=== PATIENT | male | born 1985 | race Caucasian/White ===

== ENCOUNTER 2022-01-25 06:45 | Outpatient (CLI) | payer SELFPAY ==
--- NOTE | 2022-01-25 07:15 | CRLHL7_ITS ---
For Patients: As a result of the Century Cures Act, medical imaging exams and procedure reports are released immediately into your electronic medical record. You may view this report before your referring provider. If you have questions, please contact your health care provider. CLINICAL HISTORY: mass of left kidney noted on CT COMPARISON: CT 10/15/2021 TECHNIQUE: Montero scale and color Doppler images were acquired of the kidneys. FINDINGS: Echogenic lesion lower pole left kidney measuring 1.6 x 1.6 x 1.5 centimeters corresponding with the CT. There is no evidence of hydronephrosis or calculus. The right kidney measures 10.4cm in length and the left kidney measures 10.3cm in length. The renal cortex appears of normal thickness. Normal Doppler flow to both kidneys. IMPRESSION: Indeterminate hyperechoic mass lower pole left kidney measuring 1.6 cm. Pre and postcontrast renal MRI recommended for further evaluation. Dictated by Lavelle Suh MD @ 01/25/2022 9:07:05 AM (Electronically Signed)
--- OUTSIDE RECORDS SUMMARY | 2022-02-15 16:36 | XMS_ITS | Clinical Summary ---
:1985 Author Organization [facility] Address [address] [place] [address] Care Team Providers Name Role Phone Unassigned, Provider Primary Care Provider Unavailable Source Comments You are receiving this document as you are listed as the primary care provider,follow-up provider, or the patient has been referred to you for consultation.This is in compliance with the Medicare and Medicaid EHR Incentive Program,which states Providers who transition their patient to another setting of careor provider of care or refers their patient to another provider of care shouldprovide summarycare record for each transition of care or referral. [facility] Allergies No known active allergies Medications Medication Sig Dispensed Refills Start Date End Date Status MAGNESIUM OXIDE OR 0 A ctive Echinacea 80 MG 0 Acti ve Ascorbic Acid (VITAMIN C OR) 0 Active Active Problems No known active problems Social History Tobacco Use Types Packs/Day Years Used Date Smoking Tobacco: Every Day Cigarettes 1 Sex Assigned at Date Recorded Not on file Last Filed Vital Signs Vital Sign Reading Time Taken Comments Blood Pressure 154/86 09/14/2020 2:40 PM STOCK LIFTER Pulse 101 09/14/2020 2:40 PM STOCK LIFTER Temperature - - Respiratory Rate 18 09/14/2020 2:40 PM STOCK LIFTER Oxygen Saturation 97% 09/14/2020 2:40 PM STOCK LIFTER Inhaled Oxygen Concentration - - Weight - - Height - - Body Mass Index - - Plan of Treatment Health Maintenance Due Date Last Done Comments Hep C Screening (Preventive 1987 Services) HepB (1) 1987 COVID-19 Vaccine (#1) 1987 Pneumococcal (1 - PCV) 1993 HIV Screening (Preventive 2003 Services) Adult Preventive Visit 2005 DTaP/Tdap/Td (1 - Tdap) 2006 Influenza (#1) 2022 Zoster/Shingles (1 of 2) 2037 HPV Vaccine Aged Out No longer eligib le based on patient's age to complete this topic HepA Aged Out No longer eligib le based on patient's age to complete this topic Hib Aged Out No longer eligib le based on patient's age to complete this topic IPV (Polio) Aged Out No longer eligib le based on patient's age to complete this topic MCV4 Aged Out No longer eligib le based on patient's age to complete this topic Care Teams Lab Rep Relationship Specialty Start Date End Date Unassigned, Provider PCP - General 07/26/[address] [place] [id number]
--- OUTSIDE RECORDS SUMMARY | 2022-02-15 16:36 | XMS_ITS | Encounter Summary ---
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 Reason for Visit Reason Comments Chest Pain Encounter Details Date Type Department Care Team Description 09/14/2020 Hospital Encounter [place] [address] [place], Chest pain, Urgent Care MD Raul[place] unspecified type [address] [facility] [id number] [place], [place] [phone] [id number] Social History Tobacco Use Types Packs/Day Years Used Date Smoking Tobacco: Every Day Cigarettes 1 Sex Assigned at Date Recorded Not on file documented as of this encounter Last Filed Vital Signs Vital Sign Reading Time Taken Comments Blood Pressure 154/86 09/14/2020 2:40 PM DIE ATTACHING MACHINE TENDER Pulse 101 09/14/2020 2:40 PM DIE ATTACHING MACHINE TENDER Temperature - - Respiratory Rate 18 09/14/2020 2:40 PM DIE ATTACHING MACHINE TENDER Oxygen Saturation 97% 09/14/2020 2:40 PM DIE ATTACHING MACHINE TENDER Inhaled Oxygen Concentration - - Weight - - Height - - Body Mass Index - - documented in this encounter Medications at Time of Discharge Medication Sig Dispensed Refills Start Date End Date Ascorbic Acid (VITAMIN C OR) 0 Echinacea 80 MG 0 MAGNESIUM OXIDE OR 0 documented as of this encounter ED Notes Raulito Rebollar MD - 09/14/2020 3:19 PM CST Midsternal Chest pain that started this morning, getting worse but intermittent. Denies SOB, personal cardiac history, mom had heart attack at 43. SUBJECTIVE: Chadd Romeo is a 35 y.o. male here with his partner because shortly after waking up today he noticed pain, substernal, jus a bit left to center. He has had perhaps similar chest pain before but not to that extent. He does not seem to be exertional. Denies shortness of breath or pain with deep breath. It is non positional. It feels like ???red hot dae in my chest?? . It is intermittent. Nothing really affected. He is a smoker, on no medications. He is new to [employer]. I do not believe he has a primary physician this time. Significantly, his mom had a heart attack at age 43. Allergies: Patient has no known allergies. Past medical history: has no past medical history on file. Medications: No current facility-administered medications for this encounter. Current Outpatient Medications Medication Sig Dispense Refill ??? Ascorbic Acid (VITAMIN C OR) ??? Echinacea 80 MG ??? MAGNESIUM OXIDE OR OBJECTIVE: Vital Signs: BP (!) 154/86 (BP Location: Right Arm, BP Cuff Size: Regular - Long) Pulse(!) 101 Resp 18 SpO2 97% EXAM: Overweight. Does not look to be in any respiratory or other apparent discomfort. Normal skin color. No tenderness to palpation of the chest. Heart with regular rate and rhythm, no neck vein distention. Peripheral pulses in his upper extremities are full and equal. He has no peripheral edema. No o rganomegaly. Lungs are clear bilaterally to auscultation. I ordered an EKG and reviewed myself to be normal sinus rhythm, normal EKG. Vitals as above. ASSESSMENT: Chest pain in patient with risk factors that include tobacco abuse and mom at young age having KS. he is also overweight. PLAN: Given the above, I suggested that he should be seen in the emergency department and he was sent to [facility] in [place] after I talked to personnel there. The patient was discharged ambulatory and in stable condition. 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 documented in this encounter Results ECG 12 Lead Inpatient (09/14/2020 2:42 PM DIE ATTACHING MACHINE TENDER) P athologist Signature Ventricular Rate 70 BPM [facility] Atrial Rate 70 BPM [facility] P-R Interval 138 ms [facility] QRS Duration 94 ms [facility] QT 380 ms [facility] QTc 410 ms [facility] P [place] 4 degrees [facility] R [place] 1 degrees [facility] T [place] 10 degrees [facility] Specimen (Source) Anatomical Collection Method Collection Time Re ceived Time Location / / Volume Laterality 09/14/2020 2:42 PM DIE ATTACHING MACHINE TENDER Narrative [facility] - 09/14/2020 3:50 PM DIE ATTACHING MACHINE TENDER Sinus rhythm Normal ECG No previous ECGs available Confirmed by SALAS ROSARIO ([id number]) on 3:50:24 PM Procedure Note Salas Rosario MD - 09/14/2020 Sinus rhythm Normal ECG No previous ECGs available Confirmed by SALAS ROSARIO ([id number]) on 3:50:24 PM Adelso Shultz MBBS PN ECG ORDERABLES Performing Organization Address City/State/ZIP Code Phon e Number [facility] [address] [place] [address] documented in this encounter Visit Diagnoses Diagnosis Chest pain, unspecified type Triage Assessment Note - Arlene Campbell RN - 09/14/2020 2:38 PM CST Midsternal Chest pain that started this morning, getting worse but intermittent. Denies SOB, personal cardiac history, mom had heart attack at 43. 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
--- OUTSIDE RECORDS SUMMARY | 2022-02-15 16:36 | XMS_ITS | Encounter Summary ---
:1985 Author Organization [facility] Address [address] [place] [address] Care Team Providers Name Role Phone No Ref-Primary, Physician Primary Care Provider [phone] Encounter Details Date Type Department Care Team Description 09/14/2020 Travel Social History Tobacco Use Types Packs/Day Years Used Date Never Assessed Sex Assigned at Date Recorded Not on file COVID-19 Exposure Response Date Recorded In the last month, have you been in contact with No / Unsure 09/14/2020 5:30 PM [employer]FER someone who was confirmed or suspected to have Coronavirus / COVID-19? documented as of this encounter Plan of Treatment Not on filedocumented as of this encounter Visit Diagnoses Not on filedocumented in this encounter Care Teams Fruit Culler Relationship Specialty Start Date End Date No Ref-Primary, Physician PCP - General 09/14/20 documented as of this encounter
--- OUTSIDE RECORDS SUMMARY | 2022-02-15 16:36 | XMS_ITS | Clinical Summary ---
:1985 Author Organization [facility] Address [address] [place] [address] Care Team Providers Name Role Phone No Ref-Primary, Physician Primary Care Provider [phone] Allergies No known active allergies Medications No known medications Social History Tobacco Use Types Packs/Day Years Used Date Never Assessed Sex Assigned at Date Recorded Not on file Last Filed Vital Signs Vital Sign Reading Time Taken Comments Blood Pressure 132/79 09/14/2020 4:45 PM TICKET WRITER Pulse 79 09/14/2020 4:45 PM TICKET WRITER Temperature 36 ??C (96.8 ??F) 09/14/2020 3:45 PM TICKET WRITER Respiratory Rate 16 09/14/2020 4:45 PM TICKET WRITER Oxygen Saturation 97% 09/14/2020 4:45 PM TICKET WRITER Inhaled Oxygen Concentration - - Weight 102.1 kg (225 lb) 09/14/2020 3:45 PM TICKET WRITER Height 188 cm (6' 2) 09/14/2020 3:45 PM TICKET WRITER Body Mass Index 28.89 09/14/2020 3:45 PM TICKET WRITER Plan of Treatment Health Maintenance Due Date Last Done Comments ADVANCE CARE PLANNING 1987 ANNUAL REVIEW OF HM ORDERS 1987 PREVENTIVE CARE VISIT 1987 COVID-19 Vaccine (#1) 1987 HIV SCREENING 2002 HEPATITIS C SCREENING 2005 DTAP/TDAP/TD IMMUNIZATION 07/11/2006 07/10/2006, 10/18/1999 , (5 - Tdap) 11/30/1988, Additional history exists PHQ-2 (once per calendar 07/10/2021 year) INFLUENZA VACCINE (#1) 2022 IPV IMMUNIZATION Aged Out 11/30/1988 No longer eligi ble based on patient 's age to complete this topic HEPATITIS B IMMUNIZATION Completed 03/24/2006, 10/26/2005, 09/12/2005 MENINGITIS IMMUNIZATION Aged Out No longe r eligible based on patient 's age to complete this topic Pneumococcal Vaccine: Aged Out No longer eligible Pediatrics (0 to 5 Years) based on patient's age and At-Risk Patients (6 to to co mplete this topic 64 Years) Care Teams Pipe Fitter Supervisor Relationship Specialty Start Date End Date No Ref-Primary, Physician PCP - General 09/14/20
--- OUTSIDE RECORDS SUMMARY | 2022-02-15 16:36 | XMS_ITS | Encounter Summary ---
:1985 Author Organization [facility] Address [address] [place] [address] Care Team Providers Name Role Phone No Ref-Primary, Physician Primary Care Provider [phone] Reason for Referral CV Testing (Routine) - Closed Specialty Diagnoses / Procedures Referred By Contact Refer red To Contact Diagnoses Chest pain Johnnie Robert APRN Procedures Echo Stress Echocardiogram [facility] DOPPLER ECHO PULSED, F/U OR LIMITED [facility] DOPPLER ECHO COLOR FLOW VELOCITY MAP [facility] ECHO HEART XTHORACIC, STRESS/REST [facility] ECHO TRANSTHORACIC, STRESS/REST W CONTRAST LOOP SEWER [facility] ECHO TRANSTHORACIC, STR ESS/REST W/O CONTRAST [facility] IV PUSH SINGLE, INITIAL SUBSTANCE [facility] INJECTION, PERFLUTREN LIPID MICROSPHERES, PER ML [facility] STATISTIC IV PUSH SINGLE INITIAL SUBSTANCE HI DOPPLER ECHO PULSED, F/U OR LIMITED [facility] HI DOPPLER ECHO COLOR FLOW V ELOCITY MAP HI ECHO HEART XTHORACIC, STRESS/REST HI INJECTION, PERFLUTREN LIPID MICROSPHERES, PER ML HI IV PUSH SINGLE, INITIAL SUBSTANCE HI ECHO HEART XTHORACIC, STRESS/REST HI ECHO HEART XTHORACIC, STRESS/REST [address] HC DOPPLER ECHO PULSED, F/U OR LIMITED HC DOPPLER ECHO COLOR FLOW VELOCITY MAP HC IV PUSH SINGLE, INITIAL SUBSTANCE HC STATISTIC IV PUSH SINGLE INITIAL SUBSTANCE HC ECHO TRANSTHORACIC, STRESS/[place] [address] HC ECHO TRANSTHORACIC, STRESS/REST W/O C ONTRAST Referral ID Status Reason Start Date Expiration Date Visits Requ ested Visits Authorized [id number] Closed 09/14/2020 09/14/2021 1 1 ISTRY TUTOR Reason for Visit Reason Comments Chest Pain Encounter Details Date Type Department Care Team Description 09/14/2020 Emergency [facility] Carlee Severino i, PA-C [facility] [address] [place] [address] Chest pain Emergency Dept Johnnie Robert APRN CNP [facility] [address] [place], [place] [id number] [address] [place] [address] Social History Tobacco Use Types Packs/Day Years Used Date Never Assessed Sex Assigned at Date Recorded Not on file COVID-19 Exposure Response Date Recorded In the last month, have you been in contact with No / Unsure 09/14/2020 5:30 PM CHEMISTRY TUTOR someone who was confirmed or suspected to have Coronavirus / COVID-19? documented as of this encounter Last Filed Vital Signs Vital Sign Reading Time Taken Comments Blood Pressure 132/79 09/14/2020 4:45 PM CHEMISTRY TUTOR Pulse 79 09/14/2020 4:45 PM CHEMISTRY TUTOR Temperature 36 ??C (96.8 ??F) 09/14/2020 3:45 PM CHEMISTRY TUTOR Respiratory Rate 16 09/14/2020 4:45 PM CHEMISTRY TUTOR Oxygen Saturation 97% 09/14/2020 4:45 PM CHEMISTRY TUTOR Inhaled Oxygen Concentration - - Weight 102.1 kg (225 lb) 09/14/2020 3:45 PM CHEMISTRY TUTOR Height 188 cm (6' 2) 09/14/2020 3:45 PM CHEMISTRY TUTOR Body Mass Index 28.89 09/14/2020 3:45 PM CHEMISTRY TUTOR documented in this encounter Discharge Instructions Discharge InstructionsJohnnie Robert APRN CNP - 09/14/2020 5:26 PM CHEMISTRY TUTOR Take OTC Pepcid or Prilosec as directed for at least 2 weeks. ISTRY TUTOR AttachmentsThe following attachments cannot be sent through Care Everywhere. Chest Pain, Uncertain Cause (Japanese)documented in this encounter Medications at Time of Discharge Medication Sig Dispensed Refills Start Date End Date sucralfate (CARAFATE) 1 Take 10 mLs (1 g) by 280 mL 0 09/21/2020 GM/10ML suspension mouth 4 times daily for 7 days documented as of this encounter ED Notes Heather Avilez RN - 09/14/2020 3:43 PM CST Pt sent over from for intermittent left sided CP since this morning. Denies SOB. Pt says mother had heart attack at 43. Denies current medications. ISTRY TUTOR Johnnie Robert APRN CNP - 09/14/2020 3:40 PM CST History Chief Complaint: Chest pain The history is provided by the patient. Chadd Romeo is a 35 year old male who presents for evaluation of chest pain. 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 Throughout the day, he has continued to have this chest pain which waxes and wanes in severity and is intermittent. His chest pain is nonradiating. He did have some right hand tingling throughout the day. As the day has progressed, his chest pain has worsened, leading him to present to urgent care who ultimately referred him here for further workup. Here, his pain is currently a 2/10 in severity. He denies fever, chills, shortness of breath, sore throat, abdominal pain, nausea, vomiting, diarrhea, or hematochezia. He denies any personal cardiac history, though does have a family cardiac history notable for IA at age 43 in his mother and atrial fibrillation in his father. Review of Systems Constitutional: Negative for chills and fever. HENT: Negative for sore throat. Respiratory: Negative for shortness of breath. Cardiovascular: Positive for chest pain. Gastrointestinal: Negative for abdominal pain, diarrhea, nausea and vomiting. All other systems reviewed and are negative. Allergies: No Known Drug Allergies Medications: The patient is not currently taking any prescribed medications. Medical History: History reviewed. The patient denies any medical history including hypertension, hyperlipidemia, or cardiac history. Family History: Father - Atrial fibrillation Mother - IA Social History: The patient was unaccompanied to the ED. Smoking Status: Current Alcohol Use: Yes Physical Exam Patient Vitals for the past 24 hrs: BP Temp Pulse Resp SpO2 Height Weight 09/14/20 1645 132/79 -- 79 16 97 % -- -- 09/14/20 1640 132/79 -- 76 17 98 % -- -- 09/14/20 1600 -- -- 70 13 98 % -- -- 09/14/20 1545 (!) 144/101 96.8 ??F (36 ??C) 74 18 99 % 1.88 m (6' 2) 102.1 kg (225 lb) Physical Exam General: Alert, No obvious discomfort, well kept Eyes: PERRL, conjunctivae pink no scleral icterus or conjunctival injection ENT: Moist mucus membranes, posterior oropharynx clear without erythema or exudates, No lymphadenopathy, Normal voice Resp: Lungs clear to auscultation bilaterally, no crackles/rubs/wheezes. Good air movement CV: Normal rate and rhythm, no murmurs/rubs/gallops GI: Abdomen soft and non-distended. Normoactive BS. No tenderness, guarding or rebound, No masses Skin: Warm, dry. No rashes or petechiae Musculoskeletal: No peripheral edema or calf tenderness, Normal gross ROM Neuro: Alert and oriented to person/place/time, normal sensation Psychiatric: Normal affect, cooperative, good eye contact Emergency Department Course ECG: ECG taken at 1557, ECG read at 1605 Normal sinus rhythm. Minimal voltage criteria for LVH, may be normal variant. Borderline ECG. Rate 68 bpm. HI interval 138 ms. QRS duration 94 ms. QT/QTc 394/418 ms. P-R-T axes -4 -2 5. Imaging: XR Chest 2 Views Normal. Reading per radiology. Laboratory: CBC: WBC 6.9, HGB 17.1, PLT 287 BMP: ALL WNL (Creatinine 0.72) Troponin (1556): <0.015 Emergency Department Course: Reviewed: I reviewed the patient's nursing notes, vitals, past medical records, Care Everywhere. Assessments: 1620 I performed an exam of the patient, as documented above. 1717 I reassessed the patient and discussed the results of the evaluation thus far. Interventions: 1638 Carafate 1 g PO Disposition: The patient was discharged to home. Impression & Plan Medical Decision Making: Chadd Romeo is a 35 year old male who presents today for evaluation of ongoing waxing and waningtype chest pain since this morning. Pain never fully resolved but does drop down to a level of 2 outof 10. He was unable to distinguish any alleviating or aggravating factors. Given this he presented t [facility] for evaluation. His main concern was for a cardiac source as his mother had a heart attack at ayoung age. His evaluation today showed a nonacute EKG with negative troponin. His laboratory studieswere noncontributory. Unlikely to represent ACS at this point. His symptoms were improved with Carafate as above and given his description of a burning sensation I question whether this is his reflux. He did state that it was different than his typical reflux but has not taken any medications for this. Again he had improvement with Carafate. Unlikely represent PE. Have this point in time I will give him a week's worth of Carafate advised him to take a bwju-xvq-gaazieb acid and follow-up with GI if continued symptoms. I also have placed a stress test in the system to further reduce his cardiac risk.He does have a HEART score of 1 putting him at the lowest possible risk for major cardiac event. At this point time there is no indication for further testing or imagery. He appears to be safe and appropriate for outpatient management follow-up and is discharged home. Diagnosis: ICD-10-CM 1. Chest pain R07.9 Echo Stress Echocardiogram Discharge Medications: New Prescriptions SUCRALFATE (CARAFATE) 1 GM/10ML SUSPENSION Take 10 mLs (1 g) by mouth 4 times daily for 7 days Scribe Disclosure: Marcia Kate, am serving as a scribe at 3:47 PM on 09/14/2020 to document services personally performed by Carlee Urena PA-C based on my observations and the provider's statements to me. Johnnie Robert APRN CNP 09/14/201851 ISTRY TUTOR documented in this encounter Plan of Treatment Scheduled Orders Name Type Priority Associated Order Schedule Diagnoses Echo Stress Echocardiography Routine Chest pain Ordered: Echocardiogram 09/14/2020 documented as of this encounter Procedures Procedure Name Priority Date/Time Associated Comments Diagnosis XR CHEST 2 VW STAT 09/14/2020 4:56 PM Results for this CHEMISTRY TUTOR procedure are i n the results section. EKG 12-LEAD, TRACING STAT 09/14/2020 3:57 PM R esults for this ONLY CHEMISTRY TUTOR procedure are i n the results section. CBC WITH PLATELETS & STAT 09/14/2020 3:56 PM R esults for this DIFFERENTIAL CHEMISTRY TUTOR procedure are i n the results section. TROPONIN I STAT 09/14/2020 3:56 PM Results f or this CHEMISTRY TUTOR procedure are i n the results section. BASIC METABOLIC PANEL STAT 09/14/2020 3:56 PM Results for this CHEMISTRY TUTOR procedure are i n the results section. documented in this encounter Results XR Chest 2 Views (09/14/2020 4:56 PM CHEMISTRY TUTOR) Anatomical Region Laterality Modality Chest Computed Radiography Specimen (Source) Anatomical Location Collection Method / Collectio n Time Received Time / Laterality Volume Impressions 09/14/2020 4:57 PM CHEMISTRY TUTOR IMPRESSION: Normal. JESSICA CALLE MD Narrative 09/14/2020 4:57 PM CHEMISTRY TUTOR XR CHEST 2 VW ?? 09/14/2020 4:56 PM HISTORY: CP COMPARISON: None. Procedure Note Jessica Calle MD - 09/14/2020Form atting of this note might be different from the original. XR CHEST 2 VW 09/14/2020 4:56 PM HISTORY: CP COMPARISON: None. IMPRESSION: Normal. JESSICA CALLE MD Johnnie Robert MERCHANDISER SEASONAL LOOP SEWER IMG DIAGNOSTIC IMAGING [facility] EKG 12-lead, tracing only (09/14/2020 3:57 PM CHEMISTRY TUTOR) [facility] Method Time Signature Interpretation ECG Click View RADIOLOGY Image link RESULTS to view waveform and result Specimen (Source) Anatomical Collection Method Collection Time Re ceived Time Location / / Volume Laterality 09/14/2020 3:57 PM CHEMISTRY TUTOR Carlee Urena PA-C ECG ORDERABLES Performing Organization Address City/State/ZIP Code Phon e Number RADIOLOGY RESULTS Troponin I (09/14/2020 3:56 PM CHEMISTRY TUTOR) athologist Signature Troponin I ES <0.015 0.000 - 09/14/2020 [facility] 0.045 ug/L 4:[address] [facility] Comment: The 99th percentile for upper reference range is 0.045 ug/L. ??Troponin values in the range of 0.045 - 0.120 ug/L may b e associated with risks of adverse clinical events. Specimen Anatomical Collection Method Collection Time Receive d Time (Source) Location / / Volume Laterality Blood specimen 09/14/2020 3:56 PM 021 4:05 (specimen) CHEMISTRY TUTOR PM CHEMISTRY TUTOR Carlee Urena PA-C LAB - BLOOD ORDERABLES Performing Organization Address City/State/ZIP Code Phon e Number M [place] [address] [address] [place], [place] [address] [facility] [address] [phone] Basic metabolic panel (09/14/2020 3:56 PM CHEMISTRY TUTOR) athologist Signature Sodium 140 133 - 144 09/14/2020 [facility] mmol/L 4:[address] [facility] Potassium 3.8 3.4 - 5.3 09/14/2020 [facility] mmol/L 4:[address] [facility] Chloride 106 94 - 109 09/14/2020 [facility] mmol/L 4:[address] [facility] Carbon Dioxide 27 20 - 32 09/14/2020 [facility] mmol/L 4:31 PM [facility] Anion Gap 7 3 - 14 09/14/2020 [facility] mmol/L 4:31 PM [facility] Glucose 85 70 - 99 09/14/2020 [facility] mg/dL 4:31 PM [facility] Urea Nitrogen 9 7 - 30 09/14/2020 [facility] mg/dL 4:31 PM [facility] Creatinine 0.72 0.66 - 09/14/2020 [facility] 1.25 mg/dL 4:31 PM [facility] GFR Estimate >90 >60 09/14/2020 [facility] mL/min/{1. 4:31 PM [facility] 73_m2} HOSPITAL Comment: Non GFR Calc Starting 06/26/2018, serum creatinine ba sed estimated GFR (eGFR) will be calculated using the Chronic Kidney Dise [facility] Epidemiology Collaboration (CKD-EPI) equation. GFR Estimate If >90 >60 mL/min/{1.73_m2} 09/14/2020 4: 31 PM [facility] Comment: GFR Calc Starting 06/26/2018, serum creatinine ba sed estimated GFR (eGFR) will be calculated using the Chronic Kidney Dise [facility] Epidemiology Collaboration (CKD-EPI) equation. Calcium 9.0 8.5 - 10.1 mg/dL 09/14/2020 4:31 PM [facility] Specimen Anatomical Collection Method Collection Time Receive d Time (Source) Location / / Volume Laterality Blood specimen 09/14/2020 3:56 PM 021 4:05 (specimen) CHEMISTRY TUTOR PM [facility] Carlee Urena PA-C LAB - BLOOD ORDERABLES Performing Organization Address City/State/ZIP Code Phon e Number M [address] [address] [facility] [address] [place], [place] [address] [phone] [address], [facility] CBC with platelets differential (09/14/2020 3:56 PM [facility]) [facility] Method Time Signature WBC 6.9 4.0 - 09/14/2020 [facility] 11.0 4:11 PM [facility] 10e9/L [facility] RBC Count 5.36 4.4 - 5.9 09/14/2020 [facility] 10e12/L 4:[address] [facility] Hemoglobin 17.1 13.3 - 09/14/2020 [facility] 17.7 g/dL 4:[address] [facility] Hematocrit 51.7 40.0 - 09/14/2020 [facility] 53.0 % 4:[address] [facility] MCV 97 78 - 100 09/14/2020 [facility] fl 4:[address] [facility] MCH 31.9 26.5 - 09/14/2020 [facility] 33.0 pg 4:[address] [facility] MCHC 33.1 31.5 - 09/14/2020 [facility] 36.5 g/dL 4:[address] [facility] RDW 12.3 10.0 - 09/14/2020 [facility] 15.0 % 4:[address] [facility] Platelet Count 287 150 - 450 09/14/2020 [facility] 10e9/L 4:[address] [facility] Diff Method Automated 09/14/2020 [facility] Method 4:[address] [facility] % Neutrophils 62.3 % 09/14/2020 [facility] 4:[address] [facility] % Lymphocytes 28.0 % 09/14/2020 [facility] 4:[address] [facility] % Monocytes 6.8 % 09/14/2020 [facility] 4:[address] [facility] % Eosinophils 2.0 % 09/14/2020 [facility] 4:[address] [facility] % Basophils 0.6 % 09/14/2020 [facility] 4:[address] [facility] % Immature 0.3 % 09/14/2020 [facility] Granulocytes 4:[address] [facility] Nucleated RBCs 0 0 /100 09/14/2020 [facility] 4:[address] [facility] Absolute 4.3 1.6 - 8.3 09/14/2020 [facility] Neutrophil 10e9/L 4:[address] [facility] Absolute 1.9 0.8 - 5.3 09/14/2020 [facility] Lymphocytes 10e9/L 4:[address] [facility] Absolute 0.5 0.0 - 1.3 09/14/2020 [facility] Monocytes 10e9/L 4:[address] [facility] Absolute 0.1 0.0 - 0.7 09/14/2020 [facility] Eosinophils 10e9/L 4:[address] [facility] Absolute 0.0 0.0 - 0.2 09/14/2020 [facility] Basophils 10e9/L 4:[address] [facility] Abs Immature 0.0 0 - 0.4 09/14/2020 [facility] Granulocytes 10e9/L 4:[address] [facility] Absolute 0.0 09/14/2020 [facility] Nucleated RBC 4:[address] [facility] Specimen Anatomical Collection Method Collection Time Receive d Time (Source) Location / / Volume Laterality Blood specimen 09/14/2020 3:56 PM 021 4:05 (specimen) CHEMISTRY TUTOR PM CHEMISTRY TUTOR Carlee Urena PA-C LAB - BLOOD ORDERABLES Performing Organization Address City/State/ZIP Code Phon e Number M [facility] [address] [place], [place] [address] [facility] [address] [place], [place] [address] [facility] [phone] documented in this encounter Visit Diagnoses Diagnosis Chest pain Chest pain, unspecified documented in this encounter Administered Medications Inactive Administered Medications - up to 3 most recent administrations Medication Order MAR Action Action Date Dose Rate Site sucralfate (CARAFATE) suspension 1 g Given 09/14/2020 4:38 PM CHEMISTRY TUTOR 1 g 1 g, Oral, ONCE, On Mon09/14/20 at 1630, For 1 dose documented in this encounter Active and Recently Administered Medications Times are shown in CHEMISTRY TUTOR. Scheduled Medication Order 09/12/2020 09/13/2020 09/14/2020 sucralfate (CARAFATE) suspension 1 g (COMPLETED) 1638 (Given - Provider: Carlee Morales, RN) 1 g, Oral, ONCE, Mon09/14/20 at 1630, For 1 dose documented in this encounter Care Teams Chief Nursing Executive Relationship Specialty Start Date End Date No Ref-Primary, Physician PCP - General 09/14/20 documented as of this encounter
== END 2022-01-25 06:46 | disposition home or self-care (01) ==
PROVIDERS: PCP Family Medicine; Visit Provider Family Medicine
DX: N28.89 Other specified disorders of kidney and ureter (principal)
CPT/HCPCS: 76775

== ENCOUNTER 2022-02-08 11:53 | Outpatient (CLI) | payer SELFPAY ==
--- NOTE | 2022-02-08 13:30 | W.ANESCHARGE ---
Anesthesia Charges Start Date/Time Anesthesia Start Date: 02/08/22 Anesthesia Start Time: 12:53 Stop Date/Time Anesthesia Stop Date: 02/08/22 Anesthesia Stop Time: 13:25 Summary Emergency: No
--- NOTE | 2022-02-08 13:32 | W.ANESCHARGE ---
Anesthesia Charges Start Date/Time Anesthesia Start Date: 02/08/22 Anesthesia Start Time: 12:53 Stop Date/Time Anesthesia Stop Date: 02/08/22 Anesthesia Stop Time: 13:25 Summary Emergency: No
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
--- OUTSIDE RECORDS SUMMARY | 2022-02-15 21:57 | XMS_ITS | Clinical Summary ---
:1985 Author Organization [facility] Address [address] [place] [address] Care Team Providers Name Role Phone Unassigned, [...] Comments Blood Pressure 154/86 09/14/2020 2:40 PM AUTOMOTIVE CUSTOMER EXPERIENCE ADVISOR Pulse 101 09/14/2020 2:40 PM AUTOMOTIVE CUSTOMER EXPERIENCE ADVISOR Temperature - - Respiratory Rate 18 09/14/2020 2:40 PM AUTOMOTIVE CUSTOMER EXPERIENCE ADVISOR Oxygen Saturation 97% 09/14/2020 2:40 PM AUTOMOTIVE CUSTOMER EXPERIENCE ADVISOR Inhaled Oxygen Concentration - - Weight - [...] age to complete this topic Care Teams Maintenance And Utilities Supervisor Relationship Specialty Start Date End Date Unassigned, Provider PCP - General 07/26/[address] [place] [address]
--- OUTSIDE RECORDS SUMMARY | 2022-02-15 21:57 | XMS_ITS | Clinical Summary ---
:1985 Author Organization [facility] Address [address] [place] [address] Care Team Providers Name Role Phone No Ref-Primary, Physician Primary Care Provider [phone] Allergies No known active allergies Medications No known medications Social History Tobacco Use Types Packs/Day Years Used Date Never Assessed Sex Assigned at Date Recorded Not on file Last Filed Vital Signs Vital Sign Reading Time Taken Comments Blood Pressure 132/79 09/14/2020 4:45 PM PATIENT ACCOUNTS COORDINATOR Pulse 79 09/14/2020 4:45 PM PATIENT ACCOUNTS COORDINATOR Temperature 36 ??C (96.8 ??F) 09/14/2020 3:45 PM PATIENT ACCOUNTS COORDINATOR Respiratory Rate 16 09/14/2020 4:45 PM PATIENT ACCOUNTS COORDINATOR Oxygen Saturation 97% 09/14/2020 4:45 PM PATIENT ACCOUNTS COORDINATOR Inhaled Oxygen Concentration - - Weight 102.1 kg (225 lb) 09/14/2020 3:45 PM PATIENT ACCOUNTS COORDINATOR Height 188 cm (6' 2) 09/14/2020 3:45 PM PATIENT ACCOUNTS COORDINATOR Body Mass Index 28.89 09/14/2020 3:45 PM PATIENT ACCOUNTS COORDINATOR Plan of Treatment Health Maintenance Due Date [...] mplete this topic 66 Years) Care Teams Retail Area Manager Relationship Specialty Start Date End Date No Ref-Primary, Physician PCP - General 09/14/20
--- OUTSIDE RECORDS SUMMARY | 2022-02-15 21:57 | XMS_ITS | Encounter Summary ---
:1985 Author Organization [place] Address [address] [place] [address] Care Team Providers Name Role Phone No Ref-Primary, Physician Primary Care Provider Reason for Referral CV Testing (Routine) - Closed Specialty Diagnoses / Procedures Referred By Contact Refer red To Contact Diagnoses Chest pain Johnnie Robert APRN Procedures Echo Stress Echocardiogram [facility] DOPPLER ECHO PULSED, F/U OR LIMITED [facility] DOPPLER ECHO COLOR FLOW VELOCITY MAP [facility] ECHO HEART XTHORACIC, STRESS/REST [facility] ECHO TRANSTHORACIC, STRESS/REST W CONTRAST SUPERVISOR TOWER [facility] ECHO TRANSTHORACIC, STR ESS/REST W/O CONTRAST [facility] IV PUSH SINGLE, INITIAL SUBSTANCE [facility] INJECTION, PERFLUTREN LIPID MICROSPHERES, PER ML [facility] STATISTIC IV PUSH SINGLE INITIAL SUBSTANCE CT DOPPLER ECHO PULSED, F/U OR LIMITED [facility] CT DOPPLER ECHO COLOR FLOW V ELOCITY MAP CT ECHO HEART XTHORACIC, STRESS/REST CT INJECTION, PERFLUTREN LIPID MICROSPHERES, PER ML CT IV PUSH SINGLE, INITIAL SUBSTANCE CT ECHO HEART XTHORACIC, STRESS/REST CT ECHO HEART XTHORACIC, STRESS/REST [address] [facility] DOPPLER ECHO PULSED, F/U OR LIMITED HC DOPPLER ECHO COLOR FLOW VELOCITY MAP HC IV PUSH SINGLE, INITIAL SUBSTANCE HC STATISTIC IV PUSH SINGLE INITIAL SUBSTANCE HC ECHO TRANSTHORACIC, STRESS/[place] [address] HC ECHO TRANSTHORACIC, STRESS/REST W/O C ONTRAST Referral ID Status Reason Start Date Expiration Date Visits Requ ested Visits Authorized [id number] Closed 09/14/2020 09/14/2021 1 1 MS ANALYST Reason for Visit Reason Comments Chest Pain Encounter Details Date Type Department Care Team Description 09/14/2020 Emergency [facility] Carlee Severino i, PA-C [facility] [address] [place] [address] Chest pain Emergency Dept Johnnie Robert APRN CNP [facility] [address] [place], [place] [id number] [address] [place] [address] Social History Tobacco Use Types Packs/Day Years Used Date Never Assessed Sex Assigned at Date Recorded Not on file COVID-19 Exposure Response Date Recorded In the last month, have you been in contact with No / Unsure 09/14/2020 5:30 PM CLAIMS ANALYST someone who was confirmed or suspected to have Coronavirus / COVID-19? documented as of this encounter Last Filed Vital Signs Vital Sign Reading Time Taken Comments Blood Pressure 132/79 09/14/2020 4:45 PM CLAIMS ANALYST Pulse 79 09/14/2020 4:45 PM CLAIMS ANALYST Temperature 36 ??C (96.8 ??F) 09/14/2020 3:45 PM CLAIMS ANALYST Respiratory Rate 16 09/14/2020 4:45 PM CLAIMS ANALYST Oxygen Saturation 97% 09/14/2020 4:45 PM CLAIMS ANALYST Inhaled Oxygen Concentration - - Weight 102.1 kg (225 lb) 09/14/2020 3:45 PM CLAIMS ANALYST Height 188 cm (6' 2) 09/14/2020 3:45 PM CLAIMS ANALYST Body Mass Index 28.89 09/14/2020 3:45 PM CLAIMS ANALYST documented in this encounter Discharge Instructions Discharge InstructionsJohnnie Robert APRN CNP - 09/14/2020 5:26 PM CLAIMS ANALYST Take OTC Pepcid or Prilosec as directed for at least 2 weeks. MS ANALYST AttachmentsThe following attachments cannot be sent through Care Everywhere. Chest Pain, Uncertain Cause ([place]ozambican)documented in this encounter Medications at Time of [...] heart attack at 45. Denies current medications. MS ANALYST Johnnie Robert APRN CNP - 09/14/2020 3:40 [...] have a family cardiac history notable for [place] at age 45 in his mother and [...] History: Father - Atrial fibrillation Mother - [place] Social History: The patient was unaccompanied to [...] normal variant. Borderline ECG. Rate [address] interval 138 ms. QRS duration 94 ms. [...] of Carafate advised him to take a ablm-opz-xhduoyd acid and follow-up with GI if continued [...] to me. Johnnie Robert APRN CNP 09/14/201851 MS ANALYST documented in this encounter Plan of Treatment Scheduled Orders Name Type Priority Associated Order Schedule Diagnoses Echo Stress Echocardiography Routine Chest pain Ordered: Echocardiogram 09/14/2020 documented as of this encounter Procedures Procedure Name Priority Date/Time Associated Comments Diagnosis XR CHEST 2 VIEWS STAT 09/14/2020 4:56 PM Resul ts for this CLAIMS ANALYST procedure are i n the results section. EKG 12-LEAD, TRACING STAT 09/14/2020 3:57 PM R esults for this ONLY CLAIMS ANALYST procedure are i n the results section. CBC WITH PLATELETS & STAT 09/14/2020 3:56 PM R esults for this DIFFERENTIAL CLAIMS ANALYST procedure are i n the results section. TROPONIN I STAT 09/14/2020 3:56 PM Results f or this CLAIMS ANALYST procedure are i n the results section. BASIC METABOLIC PANEL STAT 09/14/2020 3:56 PM Results for this CLAIMS ANALYST procedure are i n the results section. documented in this encounter Results XR Chest 2 Views (09/14/2020 4:56 PM CLAIMS ANALYST) Anatomical Region Laterality Modality Chest Computed Radiography Specimen (Source) Anatomical Location Collection Method / Collectio n Time Received Time / Laterality Volume Impressions 09/14/2020 4:57 PM CLAIMS ANALYST IMPRESSION: Normal. JESSICA CALLE MD Narrative 09/14/2020 4:57 PM CLAIMS ANALYST XR CHEST 2 VW ?? 09/14/2020 4:56 PM HISTORY: CP COMPARISON: None. Procedure Note Jessica Calle MD - 09/14/2020Form atting of this note might be different from the original. XR CHEST 2 VW 09/14/2020 4:56 PM HISTORY: CP COMPARISON: None. IMPRESSION: Normal. JESSICA CALLE MD Johnnie Robert OUT [employer]CHOOL [employer]RS CARE WORKER SUPERVISOR TOWER [facility] EKG 12-lead, tracing only (09/14/2020 3:57 PM CLAIMS ANALYST) [facility] Method Time Signature Interpretation ECG Click View RADIOLOGY Image link RESULTS to view waveform and result Specimen (Source) Anatomical Collection Method Collection Time Re ceived Time Location / / Volume Laterality 09/14/2020 3:57 PM CLAIMS ANALYST Carlee Urena PA-C ECG ORDERABLES Performing Organization Address City/State/ZIP Code Phon e Number RADIOLOGY RESULTS Troponin I (09/14/2020 3:56 PM CLAIMS ANALYST) athologist Signature Troponin I ES <0.015 0.000 - 09/14/2020 [facility] 0.045 ug/L 4:34 PM [facility] Comment: The 99th percentile for upper reference range is 0.045 ug/L. ??Troponin values in the range of 0.045 - 0.120 ug/L may b e associated with risks of adverse clinical events. Specimen Anatomical Collection Method Collection Time Receive d Time (Source) Location / / Volume Laterality Blood specimen 09/14/2020 3:56 PM 021 4:05 (specimen) CLAIMS ANALYST PM CLAIMS ANALYST Carlee Urena PA-C LAB - BLOOD ORDERABLES Performing Organization Address City/State/ZIP Code Phon e Number M [place] [address], [place] [address] [facility] [address] [phone] Basic metabolic panel (09/14/2020 3:56 PM CLAIMS ANALYST) athologist Signature Sodium 140 133 - 144 09/14/2020 [facility] mmol/L 4:24 PM [facility] Potassium 3.8 3.4 - 5.3 09/14/2020 [facility] mmol/L 4:24 PM [facility] Chloride 106 94 - 109 09/14/2020 [facility] mmol/L 4:24 PM [facility] Carbon Dioxide 27 20 - 32 09/14/2020 [facility] mmol/L 4:31 PM [facility] Anion Gap 7 3 - 14 09/14/2020 [facility] mmol/L 4:31 PM [facility] Glucose 85 70 - 99 09/14/2020 [facility] mg/dL 4:31 PM [facility] Urea Nitrogen 9 7 - 30 09/14/2020 [facility] mg/dL 4:31 PM [facility] Creatinine 0.72 0.66 - 09/14/2020 [facility] 1.25 mg/dL 4:31 PM [facility] GFR Estimate >90 >60 09/14/2020 [facility] mL/min/{1. 4:[address] [facility] 73_m2} [facility]OSPITAL Comment: Non GFR Calc Starting 06/26/2018, serum creatinine ba sed estimated GFR (eGFR) will be calculated using the Chronic Kidney Dise [facility] Epidemiology Collaboration (CKD-EPI) equation. GFR Estimate If >90 >60 mL/min/{1.73_m2} 09/14/2020 4: 31 PM [facility] Comment: GFR Calc Starting 06/26/2018, serum creatinine ba sed estimated GFR (eGFR) will be calculated using the Chronic Kidney Dise [facility] Epidemiology Collaboration (CKD-EPI) equation. Calcium 9.0 8.5 - 10.1 mg/dL 09/14/2020 4:31 PM [facility] Specimen Anatomical Collection Method Collection Time Receive d Time (Source) Location / / Volume Laterality Blood specimen 09/14/2020 3:56 PM 021 4:05 (specimen) CLAIMS ANALYST PM [facility] Carlee Urena PA-C LAB - BLOOD ORDERABLES Performing Organization Address City/State/ZIP Code Phon e Number M [address] [address] [facility] [address] [place], [place] [address] [phone] [address] CBC with platelets differential (09/14/2020 3:56 PM [facility]) [facility] Method Time Signature WBC 6.9 4.0 - 09/14/2020 [facility] 11.0 4:11 PM [facility] 10e9/L [facility] RBC Count 5.36 4.4 - 5.9 09/14/2020 [facility] 10e12/L 4:11 PM [facility] Hemoglobin 17.1 13.3 - 09/14/2020 [facility] 17.7 g/dL 4:11 PM [facility] Hematocrit 51.7 40.0 - 09/14/2020 [facility] 53.0 % 4:11 PM [facility] MCV 97 78 - 100 09/14/2020 [facility] fl 4:11 PM [facility] MCH 31.9 26.5 - 09/14/2020 [facility] 33.0 pg 4:11 PM [facility] MCHC 33.1 31.5 - 09/14/2020 [facility] 36.5 g/dL 4:11 PM [facility] RDW 12.3 10.0 - 09/14/2020 [facility] 15.0 % 4:11 PM [facility] Platelet Count 287 150 - 450 09/14/2020 [facility] 10e9/L 4:11 PM [facility] Diff Method Automated 09/14/2020 [facility] Method 4:11 PM [facility] % Neutrophils 62.3 % 09/14/2020 [facility] 4:11 PM [facility] % Lymphocytes 28.0 % 09/14/2020 [facility] 4:11 PM [facility] % Monocytes 6.8 % 09/14/2020 [facility] 4:11 PM [facility] % Eosinophils 2.0 % 09/14/2020 [facility] 4:11 PM [facility] % Basophils 0.6 % 09/14/2020 [facility] 4:11 PM [facility] % Immature 0.3 % 09/14/2020 [facility] Granulocytes 4:11 PM [facility] Nucleated RBCs 0 0 /100 09/14/2020 [facility] 4:11 PM [facility] Absolute 4.3 1.6 - 8.3 09/14/2020 [facility] Neutrophil 10e9/L 4:11 PM [facility] Absolute 1.9 0.8 - 5.3 09/14/2020 [facility] Lymphocytes 10e9/L 4:11 PM [facility] Absolute 0.5 0.0 - 1.3 09/14/2020 [facility] Monocytes 10e9/L 4:11 PM [facility] Absolute 0.1 0.0 - 0.7 09/14/2020 [facility] Eosinophils 10e9/L 4:11 PM [facility] Absolute 0.0 0.0 - 0.2 09/14/2020 [facility] Basophils 10e9/L 4:11 PM [facility] Abs Immature 0.0 0 - 0.4 09/14/2020 [facility] Granulocytes 10e9/L 4:11 PM [facility] Absolute 0.0 09/14/2020 [facility] Nucleated RBC 4:11 PM [facility] Specimen Anatomical Collection Method Collection Time Receive d Time (Source) Location / / Volume Laterality Blood specimen 09/14/2020 3:56 PM 021 4:05 (specimen) CLAIMS ANALYST PM CLAIMS ANALYST Carlee Urena PA-C LAB - BLOOD ORDERABLES Performing Organization Address City/State/ZIP Code Phon e Number M [facility] [address] [place], [place] [address] [facility] [address] [place], [place] [address] [facility] [phone] documented in this encounter Visit Diagnoses Diagnosis Chest pain Chest pain, unspecified documented in this encounter Administered Medications Inactive Administered Medications - up to 3 most recent administrations Medication Order MAR Action Action Date Dose Rate Site sucralfate (CARAFATE) suspension 1 g Given 09/14/2020 4:38 PM CLAIMS ANALYST 1 g 1 g, Oral, ONCE, On Mon09/14/20 at 1630, For 1 dose documented in this encounter Active and Recently Administered Medications Times are shown in CLAIMS ANALYST. Scheduled Medication Order 09/12/2020 09/13/2020 09/14/2020 sucralfate (CARAFATE) suspension 1 g (COMPLETED) 1638 (Given - Provider: Carlee Morales RN) 1 g, Oral, ONCE, Mon09/14/20 at 1630, For 1 dose documented in this encounter Care Teams Desktop Analyst Relationship Specialty Start Date End Date No Ref-Primary, Physician PCP - General 09/14/20 documented as of this encounter
--- OUTSIDE RECORDS SUMMARY | 2022-02-15 21:57 | XMS_ITS | Encounter Summary ---
:1985 Author Organization [place] Address [address] [place] [address] Care Team Providers Name Role Phone No Ref-Primary, Physician Primary Care Provider [phone] Encounter Details Date Type Department Care Team Description 09/14/2020 Travel Social History Tobacco Use Types Packs/Day Years Used Date Never Assessed Sex Assigned at Date Recorded Not on file COVID-19 Exposure Response Date Recorded In the last month, have you been in contact with No / Unsure 09/14/2020 5:30 PM BILL RECAPITULATION CLERK someone who was confirmed or suspected to have Coronavirus / COVID-19? documented as of this encounter Plan of Treatment Not on filedocumented as of this encounter Visit Diagnoses Not on filedocumented in this encounter Care Teams Weeder Thinner Relationship Specialty Start Date End Date No Ref-Primary, Physician PCP - General 09/14/20 documented as of this encounter
== END 2022-02-08 11:54 | disposition home or self-care (01) ==
LOC: OP CLINIC 11:54
PROVIDERS: PCP Family Medicine; Visit Provider Surgery
DX: R93.3 Abnormal findings on diagnostic imaging of other parts of digestive tract (principal); K63.5 Polyp of colon
CPT/HCPCS: 45385; 811; 88305; J2704

== ENCOUNTER 2022-02-13 18:35 | Emergency (ER) | payer SELFPAY ==
[2022-02-13 18:39] VITALS: BP 124/88; PULSE 93; RESP 18; TEMP 36.3; O2SAT 96; BMI 28.9
[2022-02-13 18:50] VITALS: BP 124/88; PULSE 93; RESP 18; TEMP 36.3; O2SAT 96
--- NOTE | 2022-02-13 18:50 | CRLHL7_ITS ---
For Patients: As a result of the Cures Act, medical imaging exams and procedure reports are released immediately into your electronic medical record. You may view this report before your referring provider. If you have questions, please contact your health care provider. Indication: Trauma. Technique: Left wrist, 3 views. Comparison: None. Findings: Bones: Alignment is normal. No fractures or bone lesions. Joint spaces: Unremarkable. Soft tissues: Unremarkable. Impression: No sign of acute injury. Dictated by Augustin Bhatti MD @ 02/13/2022 7:13:03 PM (Electronically Signed)
--- NOTE | 2022-02-13 18:51 | ED_ITS ---
HPI - Extremity Injury (Upper) General Chief Complaint: Extremity Pain/Injury, Upper Stated Complaint: Wrist Injury Time Seen by Provider: 02/13/22 18:39 History of Present Illness HPI narrative: This 36-year-old male comes in with an injury to his left wrist. He was pitching in a softball game when the ball was hit directly back to him and hit him on the volar aspect of the left wrist. He had some discomfort at that time but continued to play the game. Later the catcher through the ball back after pitch and it hit him in this same spot. This caused a rather immediate swelling and pain. He has bruising on the volar aspect of the left wrist that he states now is dissipated. He has normal range of motion. He does not report any other injury. Related Data Home Medications Medication Instructions Recorded Confirmed Saccharomyces boulardii 250 mg 500 mg PO BID 01/18/22 01/18/22 capsule (Daily Probiotic (S. boulardii)) acetaminophen 325 mg tablet mg PO PRN 01/18/22 01/18/22 omeprazole 20 mg capsule,delayed mg PO .Daily as needed PRN 01/18/22 01/18/22 release psyllium husk 0.4 gram capsule 0.8 g PO BID 01/18/22 01/18/22 (Metamucil) Previous Rx's Medication Instructions Recorded peg 3350-electrolytes 236 4,000 ml PO .ud #4,000 mL 02/02/22 gram-22.74 gram-6.74 gram-5.86 gram solution (Golytely) Allergies Allergy/AdvReac Type Severity Reaction Status Date / Time No Known Allergies Allergy Verified 01/18/22 09:55 Review of Systems Status of ROS: Reports: 10 or more systems reviewed and unremarkable except as noted in History and below Narrative: Constitutional: No fevers, no weight gain or loss. Eyes: No discharge. No vision changes. HENT: No congestion, no sore throat, no ear pain. Cardiovascular: No chest pain, no palpitations. Respiratory: No shortness of breath, no wheezes, no cough. Gastrointestinal: No abdominal pain, no vomiting, no diarrhea. Genitourinary: No dysuria, no hematuria. Musculoskeletal: Normal range of motion. Left wrist injury as described above. Skin: No rashes, no pruritis. Neurological: No dizziness, weakness, sensory change, speech change. Endo/Heme/Allergies: No bruising or bleeding. No polydipsia. Pysch: no suicidality, no anxiety, no insomnia. All other systems reviewed and are negative. 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 Habits: alcohol 20 drinks/wk, tob 15-20 cigs/day (working on quitting), daily marijuana Smoking Status: Current every day smoker What tobacco products do you use: cigarettes Do you use any of these nicotine containing products: None Second hand tobacco smoke exposure: Yes How often do you have a drink containing alcohol: never How often do you have six or more drinks on one occasion: Never AUDIT-C Alcohol total score: 0 Non-prescribed substance use: denies use Little interest or pleasure in doing things: not at all Feeling down, depressed, or hopeless: not at all Exam Narrative: Exam Narrative: Constitutional: Well-developed, well-nourished, no acute distress. HEENT: Normocephalic, atraumatic. Neck: Normal range of motion. Nontender. Supple. Heart: Intact distal pulses. Lungs: No chest discomfort. No wheezes, rhonchi, or rales. Abdomen: Nontender. Back: Normal range of motion. Extremities: Normal range of motion. Left wrist has bruising on the volar aspect approximately 6 cm in diameter with some swelling. Range of motion of the left wrist is intact. Skin: Intact. No rash. Warm. No erythema or pallor. Neurologic: No altered sensation. No weakness. Alert and oriented. Psychiatric: No suicidality. No anxiety or depression. No insomnia. Nursing notes and vitals signs are reviewed. Const: Vital Signs, click to edit/add: Vital Signs - 24 hr 02/13/22 18:39 02/13/22 18:50 Temperature 97.4 F L 97.4 F L Pulse Rate [Left P ulse Oximeter] 93 93 Respiratory Rate 18 18 Blood Pressure [Ri ght Upper Arm] 124/88 124/88 Pulse Oximetry 96 96 Oxygen Delivery Me thod Room Air Room Air Course Vital Signs Vital signs: Initial Vital Signs Temperature 97.4 F L 02/13/22 18:39 Temperature Source Temporal Artery Scan 02/13/22 18:39 Pulse Rate 93 02/13/22 18:39 Respiratory Rate 18 02/13/22 18:39 Blood Pressure 124/88 02/13/22 18:39 Blood Pressure Mean 100 02/13/22 18:39 Blood Pressure Position Sitting 02/13/22 18:39 Pulse Oximetry 96 02/13/22 18:39 Oxygen Delivery Method 02/13/22 18:39 Vital Signs Temperature 97.4 F L 02/13/22 18:39 Pulse Rate 93 02/13/22 18:39 Respiratory Rate 18 02/13/22 18:39 Blood Pressure 124/88 02/13/22 18:39 Pulse Oximetry 96 02/13/22 18:39 Oxygen Delivery Method 02/13/22 18:39 Temperature 97.4 F L 02/13/22 18:50 Pulse Rate 93 02/13/22 18:50 Respiratory Rate 18 02/13/22 18:50 Blood Pressure 124/88 02/13/22 18:50 Pulse Oximetry 96 02/13/22 18:50 Oxygen Delivery Method 02/13/22 18:50 MDM - Extremity Injury (Upper) MDM Narrative Medical decision making narrative: This patient comes in with an injury to his left wrist. He had significant swelling initially after the injury which sounds like a hematoma. Now the swelling has diminished but there is bruising on the volar aspect of his wrist. X-ray imaging shows no sign of fracture or malalignment. The patient actually has pretty good range of motion but does have some stiffness and increasing pain over time. An Tucker wrap was applied and he received a prescription for some tablets of Toradol. He is instructed to increase activity as tolerated. Imaging Data XR L Wrist: Radiologist's impression: No sign of acute injury. Discharge Plan Discharge Clinical Impression: Contusion of left wrist Condition: Unchanged Instructions: Wrist Injury (ED) Additional Instructions: Increase activity as tolerated. Take medication as needed and prescribed. Follow up with MD or return if worsening. Prescriptions: No Action omeprazole 20 mg capsule,delayed release(DR/EC) PO .Daily as needed PRN Saccharomyces boulardii [Daily Probiotic (S. boulardii)] 250 mg capsule 500 mg PO BID acetaminophen 325 mg tablet PO PRN Rx Instructions: Take on scheduled basis 4 times daily for 1 week, then as needed. psyllium husk [Metamucil] 0.4 gram capsule 0.8 g PO BID peg 3350-electrolytes [Golytely] 236-22.74-6.74 -5.86 gram recon soln 4,000 ml PO .ud Qty: 4000 0RF Rx Instructions: Take as instructed by endoscopy center Follow Up/Referrals: Rakesh Ramires MD [Primary Care Provider] - Stand Alone [facility]: [facility]
== END 2022-02-13 19:32 | disposition home or self-care (01) ==
PROVIDERS: Emergency Provider Emergency Medicine Emergency Medical Services; PCP Family Medicine
DX: S60.212A Contusion of left wrist, initial encounter (principal); W21.03XA Struck by baseball, initial encounter
CPT/HCPCS: 73110; 99283; 99284

== ENCOUNTER 2023-04-25 21:36 | Emergency (ER) | payer OTHER, SELFPAY ==
[2023-04-25 21:40] VITALS: BP 130/90; PULSE 110; RESP 16; TEMP 36.2; O2SAT 96
--- NOTE | 2023-04-25 22:16 | CRLHL7_ITS ---
For Patients: As a result of the Century Cures Act, medical imaging exams and procedure reports are released immediately into your electronic medical record. You may view this report before your referring provider. If you have questions, please contact your health care provider. INDICATION: Abdominal pain left lower quadrant TECHNIQUE: CT Abdomen and pelvis with i.v. contrast. Coronal and sagittal reformats were obtained. CONTRAST: 109 mL Isovue 370 COMPARISON: 10/15/2021 FINDINGS: Lower chest: There is a stable 1 mm nodule in the left lower lobe. Liver: Unremarkable. Spleen: Unremarkable. Pancreas: Unremarkable. Gallbladder: Multiple tiny calcified gallstones are noted. Kidney: There is a heterogeneous but predominantly hypodense lesion in the lower pole of the left kidney measuring 2.7 cm that has increased in size since prior exam where it measured 1.2 cm. There may be subtle internal enhancement. Adrenal: Unremarkable. Bowel: Moderate wall thickening is present in the mid sigmoid colon with mild inflammatory changes in the pericolonic fat. Previous appendectomy noted with no significant appendiceal stump identified. Vascular: Unremarkable. Lymph: Unremarkable. Peritoneum: Unremarkable. No pneumoperitoneum is seen. No significant ascites is noted. Pelvis: The bladder is decompressed and difficult to evaluate. Soft tissue: Unremarkable. Bone: Unremarkable for age. IMPRESSIONS: 1. Moderate wall thickening is present in the mid sigmoid colon with mild inflammatory changes in the pericolonic fat. These findings are consistent with acute diverticulitis. No adjacent peridiverticular abscess is seen. 2. There is a heterogeneous but predominantly hypodense lesion in the lower pole of the left kidney measuring 2.7 cm that has increased in size since prior exam where it measured 1.2 cm. There may be subtle internal enhancement. Assessment with outpatient renal MRI is recommended to exclude a renal malignancy. The findings and recommendation were discussed with Dr. Barksdale at 11:12 PM. Dictated by George Ventura MD @ 04/25/2023 11:11:37 PM Please note that all CT scans at this facility use dose modulation, iterative reconstruction, and/or weight-based dosing when appropriate to reduce radiation dose to as low as reasonably achievable. Dictated by: George Ventura MD @ 04/25/2023 23:12:15 (Electronically Signed)
[2023-04-25] MEDS: HYDROmorphone 0.5 mg/0.5 ml inj IVP (22:40)
[2023-04-25 22:43] LABS: Chloride* 97 mmol/L (96-114); Potassium* 3.7 mmol/L (3.6-5.1); Sodium* 136 mmol/L (135-149)
[2023-04-25 22:46] LABS: Anion Gap 11 mEq/L (7-15); Blood Urea Nitrogen* 9 mg/dL (5-24); Carbon Dioxide* 28 mmol/L (20-32); Creatinine* 0.8 mg/dL (0.5-1.5); Estimated Glomerular Filt Rate 118 ml/min
[2023-04-25 22:47] LABS: Calcium* 9.2 mg/dL (8.4-10.6); Glucose* 91 mg/dL (60-115)
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
[2023-04-25 22:56] LABS: Basophils Absolute Auto 0.03 K/uL (0.00-0.30); Basophils Percent Auto 0.3 % (0.0-3.0); Eosinophils Absolute Auto 0.09 K/uL (0.00-0.50); Hemoglobin* 16.7 gm/dL (13.5-17.5); Immature Granulocytes Abs Auto 0.02 K/uL (0.00-0.30); Immature Granulocytes Pct Auto 0.2 %; Lymphocytes Percent Auto 16.9 % (20-44); Mean Corpuscular HGB Conc 34 gm/dL (32-36); Mean Corpuscular Hemoglobin 33 pg (26-34); Mean Corpuscular Volume 96 fL (80-100); Monocytes Percent Auto 7.8 % (0.0-11.0); Neutrophils Percent Auto 73.8 % (42.0-72.0); Platelet Count* 247 K/uL (140-440); White Blood Count* 9.25 K/uL (4.50-11.00)
[2023-04-25 23:00] LABS: Slide Review Reflex No
[2023-04-25] MEDS: cefTRIAXone 1 GM in 0.9 % SODIUM CHLORIDE Mini-bag 100 ML IVPB (23:30)
[2023-04-26] MEDS: metroNIDAZOLE 500 MG/100 ML PIGGYBACK 100 MG IVPB (00:03)
[2023-04-26 00:59] VITALS: PULSE 87; RESP 16
[2023-04-26 01:29] LABS: Albumin* 4.2 g/dL (3.3-5.0)
[2023-04-26 01:32] LABS: Alkaline Phosphatase* 53 U/L (40-150); Aspartate Amino Transferase* 50 U/L (12-35); Bilirubin Total* 0.8 mg/dL (0.1-1.5); Total Protein* 7.3 g/dL (6.0-8.3)
[2023-04-26 01:33] LABS: Alanine Aminotransferase* 35 U/L (4-50)
== END 2023-04-26 01:25 | disposition home or self-care (01) ==
PROVIDERS: Emergency Provider Family Medicine; PCP Family Medicine
DX: N28.89 Other specified disorders of kidney and ureter (principal); K57.32 Diverticulitis of large intestine without perforation or abscess without bleeding
CPT/HCPCS: 36415; 74177; 80048; 80076; 85025; 96365; 96375; 99282; 99284; 99285; J0696; J1170; Q9967; S0030

== ENCOUNTER 2023-05-25 12:47 | Outpatient (CLI) | payer OTHER, SELFPAY ==
--- NOTE | 2023-05-25 13:00 | CRLHL7_ITS ---
For Patients: As a result of the Century Cures Act, medical imaging exams and procedure reports are released immediately into your electronic medical record. You may view this report before your referring provider. If you have questions, please contact your health care provider. INDICATION: Renal mass. TECHNIQUE: Abdominal MRI. T1, T2, and diffusion weighting. Postcontrast T1 weighted imaging. Contrast: 20 cc Dotarem IV. COMPARISON: CT scan April 25, 2023. MRI abdomen 11/25/2022. FINDINGS: Kidneys: Left kidney: 2 cm mass in the axial measurement left kidney posterior midportion junction or pole. This is central involving the cortex and the juxtacortical portion of the medulla. 2 cm. Solid. Internal enhancement with gadolinium. No hydronephrosis. Right kidney: No change. Liver spleen pancreas adrenal glands: Unremarkable no change. Biliary tree: Small stones. Intra and extrahepatic bile ducts are normal caliber. Lymph nodes: No suspicious lymph node enlargement. IMPRESSION: 1. Well-circumscribed solid renal mass with moderate increased T2 signal and gadolinium enhancement in the left kidney. 2. The lesion shows slight interval increase size from the previous MRI previously measuring at 15 mm now measuring at 20 mm oncocytoma or renal cell carcinoma are the diagnoses of exclusion. 3. Incidental gallstones. 4. Continued urologic follow-up is advised. Dictated by Sharad Salvador MD @ 05/30/2023 5:42:05 PM (Electronically Signed)
== END 2023-05-25 12:48 | disposition home or self-care (01) ==
LOC: MRI 12:47
PROVIDERS: PCP Family Medicine; Visit Provider Family Medicine
DX: N28.89 Other specified disorders of kidney and ureter (principal); K80.20 Calculus of gallbladder without cholecystitis without obstruction
CPT/HCPCS: 74183; A9575

== ENCOUNTER 2024-05-16 14:23 | Emergency (ER) | payer OTHER, SELFPAY ==
[2024-05-16] VITALS (29 sets, daily range): BP systolic 72–147; BP diastolic 44–100; PULSE 78–106; RESP 16–20; TEMP 36.3–36.7; O2SAT 94–99; BMI 28.2
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
--- NOTE | 2024-05-16 14:47 | CRLHL7_ITS ---
For Patients: As a result of the Century Cures Act, medical imaging exams and procedure reports are released immediately into your electronic medical record. You may view this report before your referring provider. If you have questions, please contact your health care provider. Indication: Right chest pain Comparison: None available. Technique: Single AP view chest Findings: There is mild hyperinflation. There is questionable left basilar airspace opacity versus prominent pericardial fat. There is no pneumothorax. The right hemithorax is grossly clear. The cardiac silhouette is mildly prominent. The bony thorax is grossly intact. Impression: 1. Mild airspace opacity within the left lung base which may represent minimal prominent pericardial fat versus basilar atelectasis/infiltrates. Dictated by José Begum MD @ 05/16/2024 3:36:18 PM (Electronically Signed)
[2024-05-16 15:04] LABS: Lactate* 1.3 mmol/L (0.5-1.9)
[2024-05-16 15:08] LABS: Basophils Absolute Auto 0.03 K/uL (0.00-0.30); Basophils Percent Auto 0.3 % (0.0-3.0); Eosinophils Absolute Auto 0.03 K/uL (0.00-0.50); Eosinophils Percent Auto 0.3 % (0.0-7.0); Hemoglobin* 16.7 gm/dL (13.5-17.5); Immature Granulocytes Abs Auto 0.09 K/uL (0.00-0.30); Lymphocytes Percent Auto 14.1 % (20-44); Mean Corpuscular HGB Conc 35 gm/dL (32-36); Mean Corpuscular Hemoglobin 33 pg (26-34); Mean Corpuscular Volume 96 fL (80-100); Monocytes Percent Auto 5.3 % (0.0-11.0); Platelet Count* 284 K/uL (140-440); RDW Coefficient of Variation % 12.6 % (11.5-15.5); White Blood Count* 9.42 K/uL (4.50-11.00)
[2024-05-16 15:16] LABS: Troponin, Point-of-Care* 0.01 ng/ml (0.01-0.04)
[2024-05-16 15:17] LABS: Slide Review Reflex No
[2024-05-16 15:39] LABS: D Dimer Quantitative* 0.29 ug/ml (0.00-0.50)
[2024-05-16] MEDS: KETOROLAC 15 MG/ML inj IVP (15:43)
--- NOTE | 2024-05-16 15:56 | CRLHL7_ITS ---
For Patients: As a result of the Century Cures Act, medical imaging exams and procedure reports are released immediately into your electronic medical record. You may view this report before your referring provider. If you have questions, please contact your health care provider. INDICATION: Dyspnea. Chest pain. TECHNIQUE: Multiplanar CT pulmonary angiogram was performed after the administration of 95 mL of Isovue 370 intravenous contrast. COMPARISON: Same-day chest radiograph. FINDINGS: Lower neck: The visualized thyroid is unremarkable. Cardiovascular: Contrast opacification of the pulmonary arterial tree is adequate. Heart size is normal. Thoracic aorta and pulmonary artery are normal in caliber. No significant atherosclerotic calcifications of the aortic arch. No significant coronary arterial calcifications. No pulmonary embolus. Prominent epicardial/pericardial fat accounts for the finding on the same-day chest radiograph fat. Mediastinum and lymph nodes: Unremarkable. No pathologic mediastinal or hilar lymphadenopathy by size criteria. Lungs: No focal consolidation. Dependent atelectasis. Linear bandlike opacification of the lung bases bilaterally, likely subsegmental atelectasis and/or scarring. Airways: Trachea remains patent and midline. Mild diffuse peribronchial wall thickening. Pleura: No pleural effusions or pneumothorax Chest wall: Mild pectus excavatum. Prominent axillary lymph nodes that do not meet size criteria for lymphadenopathy. Bones: No acute osseous abnormalities. Mild degenerative changes of the thoracic spine. Upper abdomen: No acute findings in the visualized upper abdomen. No reflux of contrast material into the IVC. IMPRESSION: 1. No pulmonary embolus. No CT evidence of right heart strain. 2. No acute intrathoracic pathology. Please note that all CT scans at this facility use dose modulation, iterative reconstruction, and/or weight-based dosing when appropriate to reduce radiation dose to as low as reasonably achievable. Dictated by Tyrese Weir MD @ 05/16/2024 6:06:18 PM (Electronically Signed)
--- NOTE | 2024-05-16 15:56 | CRLHL7_ITS ---
For Patients: As a result of the Century Cures Act, medical imaging exams and procedure reports are released immediately into your electronic medical record. You may view this report before your referring provider. If you have questions, please contact your health care provider. INDICATION: Left lower quadrant pain, bright red blood per rectum TECHNIQUE: CT abdomen and pelvis acquired with 100 cc Omnipaque 350 IV contrast. COMPARISON: Same day chest CT, MR abdomen 05/25/2023 FINDINGS: Lower chest: Please see same-day chest CT for findings the diaphragm. Liver: Unremarkable. Normal in size and attenuation. No suspicious masses. Gallbladder and bile ducts: Cholelithiasis. No wall thickening or pericholecystic free fluid. No biliary dilatation. Pancreas: Unremarkable. No mass or inflammation. Spleen: Unremarkable. Normal in size. No masses. Adrenal glands: Unremarkable. No nodules. Kidneys: Prior left nephrectomy. No evidence of recurrence at the resection margin. The right kidney is unremarkable. No hydronephrosis. GI tract: Colonic diverticulosis. Normal in caliber. No sign of mass or inflammation. Prior appendectomy Vasculature: Abdominal aorta is normal in caliber. Mesenteric arteries are patent. Lymph nodes: No lymphadenopathy. Peritoneum/Abdominal Wall: Unremarkable. No sign of mass or infiltration. No free air or significant free fluid. Pelvis: Unremarkable. Bones: Unremarkable for age. IMPRESSION: No acute findings. No explanation for the patient`s pain or bleeding. Please note that all CT scans at this facility use dose modulation, iterative reconstruction, and/or weight-based dosing when appropriate to reduce radiation dose to as low as reasonably achievable. Dictated by Lakesha Conner MD @ 05/16/2024 6:05:33 PM (Electronically Signed)
--- OUTSIDE RECORDS SUMMARY | 2024-05-16 16:36 | XMS_ITS | Clinical Summary ---
Author Organization [facility] Address [address] [facility] [place] [address] Care Team Providers Care Business Account Executive Name Role Phone No Ref-Primary, Physician Primary Care Provider Allergies No known active allergies Medications No known medications Social History Tobacco Use Types Packs/Day Years Used Date Smoking Tobacco: Never Assessed Adolescent Education Answer Date Record ed Getting School Help Needed Not on file 04/26 Sex and Gender Information Value Date Recorded Sex Assigned at Not on file Legal Sex Male 4:58 AM SOCIAL MEDIA JOB TITLES Gender Identity Not on file Sexual Orientation Not on file Last Filed Vital Signs Vital Sign Reading Time Taken Comments Blood Pressure 132/79 09/14/2020 4:45 PM SOCIAL MEDIA JOB TITLES Pulse 79 09/14/2020 4:45 PM SOCIAL MEDIA JOB TITLES Temperature 36 ??C (96.8 ??F) 09/14/2020 3:45 PM SOCIAL MEDIA JOB TITLES Respiratory Rate 16 09/14/2020 4:45 PM SOCIAL MEDIA JOB TITLES Oxygen Saturation 97% 09/14/2020 4:45 PM SOCIAL MEDIA JOB TITLES Inhaled Oxygen Concentration - - Weight 102.1 kg (225 lb) 09/14/2020 3:45 PM SOCIAL MEDIA JOB TITLES Height 188 cm (6' 2) 09/14/2020 3:45 PM SOCIAL MEDIA JOB TITLES Body Mass Index 28.89 09/14/2020 3:45 PM SOCIAL MEDIA JOB TITLES Plan of Treatment Not on file Care Teams Business Account Executive Relationship Specialty Start Date End Date No Ref-Primary, Physician PCP - General 09/14/20
--- OUTSIDE RECORDS SUMMARY | 2024-05-16 16:36 | XMS_ITS | Referral Summary ---
Author Organization [facility] Address [address] [facility] [place] [address] Care Team Providers Care Official Greeter Name Role Phone No Ref-Primary, Physician Primary Care Provider Allergies No known active allergies Medications No known medications Social History Tobacco Use Types Packs/Day Years Used Date Smoking Tobacco: Never Assessed Adolescent Education Answer Date Record ed Getting School Help Needed Not on file 04/26 Sex and Gender Information Value Date Recorded Sex Assigned at Not on file Legal Sex Male 4:58 AM TYRE BUILDER Gender Identity Not on file Sexual Orientation Not on file Last Filed Vital Signs Vital Sign Reading Time Taken Comments Blood Pressure 132/79 09/14/2020 4:45 PM TYRE BUILDER Pulse 79 09/14/2020 4:45 PM TYRE BUILDER Temperature 36 ??C (96.8 ??F) 09/14/2020 3:45 PM TYRE BUILDER Respiratory Rate 16 09/14/2020 4:45 PM TYRE BUILDER Oxygen Saturation 97% 09/14/2020 4:45 PM TYRE BUILDER Inhaled Oxygen Concentration - - Weight 102.1 kg (225 lb) 09/14/2020 3:45 PM TYRE BUILDER Height 188 cm (6' 2) 09/14/2020 3:45 PM TYRE BUILDER Body Mass Index 28.89 09/14/2020 3:45 PM TYRE BUILDER Plan of Treatment Not on file Care Teams Official Greeter Relationship Specialty Start Date End Date No Ref-Primary, Physician PCP - General 09/14/20
--- OUTSIDE RECORDS SUMMARY | 2024-05-16 16:36 | XMS_ITS | Clinical Summary ---
Author Organization [facility] Address [address], [place] [address] Care Team Providers Care Rotoprinter Name Role Phone Unassigned, Provider Primary Care Provider Unava ilable Source Comments You are receiving this document as you are listed as the primary care provider,follow-up provider, or the patient has been referred to you for consultation.This is in compliance with the Medicare and[facility] EHR Incentive Program,which states Providers who transition their patient to another setting of careor provider of care or refers their patient to another provider of care shouldprovide summary care record for each transition of care or referral. [facility] Allergies No known active allergies Medications Medication Sig Dispensed Refills Start Date End Date Status MAGNESIUM OXIDE OR Active Echinacea 80 MG Active Ascorbic Acid (VITAMIN C OR) Active Active Problems No known active problems Social History Tobacco Use Types Packs/Day Years Used Date Smoking Tobacco: Every Day Cigarettes Sex and Gender Information Value Date Recorded Sex Assigned at Not on file Gender Identity Not on file Sexual Orientation Not on file Last Filed Vital Signs Vital Sign Reading Time Taken Comments Blood Pressure 154/86 09/14/2020 2:40 PM ENVIRONMENTAL HEALTH AND SAFETY MANAGER Pulse 101 09/14/2020 2:40 PM ENVIRONMENTAL HEALTH AND SAFETY MANAGER Temperature - - Respiratory Rate 18 09/14/2020 2:40 PM ENVIRONMENTAL HEALTH AND SAFETY MANAGER Oxygen Saturation 97% 09/14/2020 2:40 PM ENVIRONMENTAL HEALTH AND SAFETY MANAGER Inhaled Oxygen Concentration - - Weight - - Height - - Body Mass Index - - Plan of Treatment Health Maintenance Due Date Last Done Comments Hep C Screening (Preventive Services) 1987 Pneumococcal (1 - PCV) 1993 HIV Screening (Preventive Services) 2003 Adult Preventive Visit 2005 DTaP/Tdap/Td (1 - Tdap) 2006 HepB (1) 2006 Cholesterol 2022 COVID-19 Vaccine ( - 2023-2 5 season) 2024 Influenza (#1) 2024 Zoster/Shingles (1 of 2) 2037 HPV Vaccine Aged Out No longer eligi ble based on patient's age to complete this topic HepA Aged Out No longer eligi ble based on patient's age to complete this topic Hib Aged Out No longer eligi ble based on patient's age to complete this topic IPV (Polio) Aged Out No longer eligi ble based on patient's age to complete this topic RSV Aged Out No longer eligi ble based on patient's age to complete this topic MCV4 Aged Out No longer eligi ble based on patient's age to complete this topic Care Teams Rotoprinter Relationship Specialty Start Date End Date Unassigned, Provider [address] [place] [id number] PCP - General 07/26/00
--- OUTSIDE RECORDS SUMMARY | 2024-05-16 16:36 | XMS_ITS | Clinical Summary ---
Author Organization [facility] Address [place], [place] [address] Care Team Providers Care Cloth Bleaching Supervisor Name Role Phone [facility], [facility] Primary Care Pr ovider Allergies No known active allergies Medications Medication Sig Dispensed Refills Start Date End Date Status medication order composer Take 0.8 g by mouth two times daily. Psyllium husk (Metamucil) Active oxyCODONE (ROXICODONE) 5 mg immediate release tabletIndications:Re nal mass Take 1 Tablet (5 mg) by mouth every 4 hours if needed for Pain. 8 Tablet 08/11/2023 Active docusate (COLACE) 100 mg capsuleIndications:R enal mass Take 1 Capsule (100 mg) by mouth once daily. 14 Capsule 08/11/2023 Active polyethylene glycoL (MIRALAX) 17 gram/scoop powderIndications:Co nstipation, acute Mix 1 scoop (17 g) in liquid then take by mouth once daily if needed for Constipation. 238 g 08/15/2023 Active Active Problems Problem Noted Date Diagnosed Date Renal cell carcinoma of left kidney 08/15/2023 Immunizations Name Administration Dates Next Due DTaP 11/30/1988,1987 Hepatitis B (Adult) 03/24/2006 Hepatitis B (Peds) 10/26/2005,09/12/2005 MMR 10/18/1999,07/20/1988 Meningococcal Vaccine (Menactra) 09/12/2005 Polio Virus, Unspecified 11/30/1988 Td (Age >=7 Years) 07/10/2006,10/18/1999 Tdap 05/11/2016 Social History Tobacco Use Types Packs/Day Years Used Date Smoking Tobacco: Former Cigarettes 0.5 19.8 S tarted: 07/10/2004 Smokeless Tobacco: Never Tobacco Cessation:Counseling Given: Not Answered Comments:15-20 cigarettes/day Alcohol Use Standard Drinks/Week Comments Not Currently 20 (1 standard drink = 0.6 oz pu re alcohol) 7-20 drinks per week PHQ-2 Answer Date Recorded PHQ-2 TOTAL SCORE 1 08/15/2023 Social Connections Answer Date Recorded Frequency of Communication with Friends and Fami ly Not on file 08/10/2023 Sex and Gender Information Value Date Recorded Sex Assigned at Not on file Gender Identity Not on file Sexual Orientation Not on file Obstetrics History Last Filed Vital Signs Vital Sign Reading Time Taken Comments Blood Pressure 127/86 08/15/2023 8:14 AM ROLL REPAIRER Pulse 82 08/15/2023 8:14 AM ROLL REPAIRER Temperature 36.9 ??C (98.5 ??F) 08/11/2023 1 2:07 PM ROLL REPAIRER Respiratory Rate 18 08/11/2023 12:0 7 PM ROLL REPAIRER Oxygen Saturation 95% 08/15/2023 8:14 AM ROLL REPAIRER Inhaled Oxygen Concentration - - Weight 100.1 kg (220 lb 9.6 oz) 08/15/2023 8:14 AM ROLL REPAIRER Height 188 cm (6' 2) 08/10/2023 7:14 AM ROLL REPAIRER Body Mass Index 28.32 08/10/2023 7:14 AM ROLL REPAIRER Plan of Treatment Health Maintenance Due Date Last Done Comments HIV for age 15-65 2002 BMI (ht and wt on same day) for age 18+ 2005 Hepatitis C screening for ag e 18-79 2005 Lipids for age 35-44 2022 COVID-19 vaccine series ( season) 2024 Influenza for age 9-49 03/10/2024 Depression screening for age 12+ 08/15/2024 08/15/2023 Tetanus booster 05/11/2026 05/11/2016, 07/10/2006, 10/18/1999 Tdap Completed 05/11/2016 Pneumococcal series for age 6-64 Aged Out No longer eligible b ased on patient's age to complete this topic Advance Directives * Full Code (Latest Code Status on File) Date Activated Date Inactivated Comments 08/10/2023 7:02 AM 08/11/2023 3:41 PM Question Answer Comments Code Status Discussion: Unable to Assess Preferences, Provider to review later Care Teams Cloth Bleaching Supervisor Relationship Specialty Start Date End Date Clinic, [facility] [address] [facility] [place] [address] PCP - General 07/31/23
[2024-05-16 16:53] LABS: Chloride* 97 mmol/L (96-114)
[2024-05-16 16:54] LABS: Albumin* 4.8 g/dL (3.3-5.0); Sodium* 131 mmol/L (135-149)
[2024-05-16 16:55] LABS: Potassium* 4.3 mmol/L (3.6-5.1)
[2024-05-16 16:57] LABS: Alanine Aminotransferase* 24 U/L (4-50); Alkaline Phosphatase* 67 U/L (40-150); Aspartate Amino Transferase* 56 U/L (12-35); Bilirubin Direct* 0.4 mg/dL (0.0-0.5); Bilirubin Total* 0.6 mg/dL (0.1-1.5); Blood Urea Nitrogen* 11 mg/dL (5-24); Calcium* 9.8 mg/dL (8.4-10.6); Carbon Dioxide* 22 mmol/L (20-32); Creatinine* 1.1 mg/dL (0.5-1.5); Estimated Glomerular Filt Rate 89 ml/min; Glucose* 82 mg/dL (60-115); Lipase* 71 U/L (23-300); Total Protein* 7.6 g/dL (6.0-8.3)
[2024-05-16 16:58] LABS: Anion Gap 12 mEq/L (7-15)
[2024-05-16 17:08] LABS: NT Pro B Type NatriureticPept* < 20 pg/mL
[2024-05-16 17:36] LABS: C Reactive Protein* < 0.5 mg/dL (0.5-1.0); Troponin I* < 0.01 ng/mL (0.01-0.04)
== END 2024-05-16 18:34 | disposition home or self-care (01) ==
LOC: ED 16:34
PROVIDERS: Emergency Medicine Emergency Medical Services; Emergency Provider Family Medicine; PCP Family Medicine
DX: R07.89 Other chest pain (principal)
CPT/HCPCS: 36415; 71045; 71275; 74177; 80053; 82248; 83605; 83690; 83880; 84484; 85025; 85379; 86140; 93005; 94761; 96374; 99285; J1885; Q9967

== ENCOUNTER 2024-12-16 16:55 | Emergency (ER) | payer OTHER, SELFPAY ==
--- OUTSIDE RECORDS SUMMARY | 2024-12-16 16:57 | XMS_ITS | CCD ---
Author Name [facility], [email or web address] Address [address] [place] [id number] [facility] Address [address] [place] [id number] Care Team Providers Care Retread Builder Name Role Phone Elizabeth Garcia Unavailable Unavailable Reason for Visit Encounters Problems Social History
--- OUTSIDE RECORDS SUMMARY | 2024-12-16 16:57 | XMS_ITS | Clinical Summary ---
Author Organization [facility] Address [address] [place] [address] Care Team Providers Care Rheostat Assembler Name Role Phone Pcp, No Primary Care Provider Unavailabl e Allergies No known active allergies Medications medication order composer Take 0.8 g by mouth two times daily. Psyllium husk (Metamucil) Active oxyCODONE (ROXICODONE) 5 mg immediate release tabletIndicatio ns:Renal mass Take 1 Tablet (5 mg) by mouth every 4 hours if needed for Pain. 8 Tablet 08/11/2023 12:25 PM LAPPING MACHINE SET UP OPERATOR 08/11/2023 Active docusate (COLACE) 100 mg capsuleIndicati ons:Renal mass Take 1 Capsule (100 mg) by mouth once daily. 14 Capsule 08/11/2023 12:25 PM LAPPING MACHINE SET UP OPERATOR 08/11/2023 Active polyethylene glycoL (MIRALAX) 17 gram/scoop powderIndicatio ns:Constipation , acute Mix 1 scoop (17 g) in liquid then take by mouth once daily if needed for Constipation. 238 g 08/15/2023 Active Active Problems Problem Noted Date Diagnosed Date Renal cell carcinoma of left kidney 08/15/2023 Immunizations Immunization Administration Dates Next Due DTaP 11/30/1988,1987 Hepatitis B (Adult) 03/24/2006 Hepatitis B (Peds) 10/26/2005,09/12/2005 MMR 10/18/1999,07/20/1988 Meningococcal Vaccine (Menactra) 09/12/2005 Polio Virus, Unspecified 11/30/1988 Td (Age >=7 Years) 07/10/2006,10/18/1999 Tdap 05/11/2016 Social History Tobacco Use Types Packs/Day Years Used Date Smoking Tobacco: Former Cigarettes 0.5 20.4 S tarted: 07/10/2004 Smokeless Tobacco: Never Tobacco [...] at Not on file Legal Sex Male 8:37 AM LAPPING MACHINE SET UP OPERATOR Gender Identity Not on file Sexual Orientation Not on file Obstetrics History Last Filed Vital Signs Vital Sign Reading Time Taken Comments Blood Pressure 127/86 08/15/2023 8:14 AM LAPPING MACHINE SET UP OPERATOR Pulse 82 08/15/2023 8:14 AM LAPPING MACHINE SET UP OPERATOR Temperature 36.9 C (98.5 F) 08/11/2023 12:07 PM LAPPING MACHINE SET UP OPERATOR Respiratory Rate 18 08/11/2023 12:0 7 PM LAPPING MACHINE SET UP OPERATOR Oxygen Saturation 95% 08/15/2023 8:14 AM LAPPING MACHINE SET UP OPERATOR Inhaled Oxygen Concentration - - Weight 100.1 kg (220 lb 9.6 oz) 08/15/2023 8:14 AM LAPPING MACHINE SET UP OPERATOR Height 188 cm (6' 2) 08/10/2023 7:14 AM LAPPING MACHINE SET UP OPERATOR Body Mass Index 28.32 08/10/2023 7:14 AM LAPPING MACHINE SET UP OPERATOR Plan of Treatment Health Maintenance Due Date Last Done Comments HIV for age 15-65 2002 BMI (ht and wt on same day) for age 18+ 2005 Hepatitis C screening for ag e 18-79 2005 Lipids for age 35-44 2022 COVID-19 vaccine series ( season) 2024 Depression screening for age 12+ 08/15/2024 08/15/2023 Influenza Vaccine (Season Ended) 2025 Tetanus booster 05/11/2026 05/11/2016, 07/10/2006, 10/18/1999 Hepatitis B series for 19+ Completed 03/24, 10/26/2005, 09/12/2005 Tdap Completed 05/11/2016 Pneumococcal series for age 6-49 Aged Out No longer eligible b ased on patient's age to complete this topic Insurance [place] [id number] Advance Directives * Full Code (Latest Code Status on File) Date Activated Date Inactivated Comments 08/10/2023 7:02 AM 08/11/2023 3:41 PM Question Answer Comments Code Status Discussion: Unable to Assess Preferences, Provider to review later Care Teams Rheostat Assembler Relationship Specialty Start Date End Date Pcp, No . PCP - General 07/16/24
--- OUTSIDE RECORDS SUMMARY | 2024-12-16 16:57 | XMS_ITS | Clinical Summary ---
Author Organization [facility] Address [address] [place] [address] Care Team Providers Care Ore Dryer Name Role Phone No Ref-Primary, Physician Primary Care Provider Allergies No known active allergies Medications No known medications Social History Tobacco Use Types Packs/Day Years Used Date Smoking Tobacco: Never Assessed Adolescent Education Answer Date Record ed Getting School Help Needed Not on file 04/26 Sex and Gender Information Value Date Recorded Sex Assigned at Not on file Legal Sex Male 4:58 AM MANAGER PORTABLE Gender Identity Not on file Sexual Orientation Not on file Last Filed Vital Signs Vital Sign Reading Time Taken Comments Blood Pressure 132/79 09/14/2020 4:45 PM MANAGER PORTABLE Pulse 79 09/14/2020 4:45 PM MANAGER PORTABLE Temperature 36 C (96.8 F) 09/14/2020 3:45 PM MANAGER PORTABLE Respiratory Rate 16 09/14/2020 4:45 PM MANAGER PORTABLE Oxygen Saturation 97% 09/14/2020 4:45 PM MANAGER PORTABLE Inhaled Oxygen Concentration - - Weight 102.1 kg (225 lb) 09/14/2020 3:45 PM MANAGER PORTABLE Height 188 cm (6' 2) 09/14/2020 3:45 PM MANAGER PORTABLE Body Mass Index 28.89 09/14/2020 3:45 PM MANAGER PORTABLE Plan of Treatment Not on file Care Teams Ore Dryer Relationship Specialty Start Date End Date No Ref-Primary, Physician PCP - General 09/14/20
--- OUTSIDE RECORDS SUMMARY | 2024-12-16 16:57 | XMS_ITS | Data Portability ---
Author Organization [place] [facility], [facility] Address [address] SHAHEED Clark [address] Care Team Providers Care Traditional [facility] Practitioner Name Role Phone SHAYLASATHYA Primary Care Provider Assessment Encounter Date Assessment Date Assessment LastModified by Organization Details LastModified Time 07/20/2023 07/20/2023 38-year-old male presents for evaluation of a growing left renal mass Reviewed CT and MRI x 2, as well as emergency department visit note [email or web address] Not available 07/20/2023 16:50:57 08/22/2023 08/22/2023 38-year-old male with history of Gina grade 3, pT1a clear-cell renal cell carcinoma status post left hand-assisted radical nephrectomy 08/2023. Reviewed nephrectomy pathology [email or web address] Not available 08/22/2023 14:01:54 02/20/2024 02/20/2024 38-year-old male with history of left kidney cancer. Left hand-assisted radical nephrectomy 08/2023. Gina grade 3, pT1a clear-cell renal cell carcinoma. Reviewed nephrectomy pathology, genetics note, chest x-ray, abdominal MRI [email or web address] Not available 02/20/2024 12:30:11 Plan of Treatment Reminders Order Date Submit Date Provider Last Modified By Organization Details Last Modified Time Details Appointments None recorded. Lab CMP, serum or plasma 2023 024 [facility], [address], [address], [place], [address], 13:58:56 Referral cancer support services 2023 024 [email or web address] Not available 4 15:22:02 genetic counselor referral - PLEASE CONTACT PATIENT TO SCHEDULE-Hans roberts counselor referral 2023 024 [email or web address] 89 [facility], [address], [address], [place], [address], 4 08:37:41 Procedures None recorded. Surgeries nephrectomy , hand assisted laparoscopi c (SURG) 2023 024 [email or web address] [facility], [address], [place], [address], 4 09:07:36 Imaging MRI, abdomen, w/wo contrast - Please schedule patient 1-2 weeks prior to: 02/20/2024Up on completion, please fax results to: [phone] you. 2023 024 [email or web address] [facility], [address], [place], [address], 4 08:21:10 XR, chest, 2 view - Please schedule patient 1-2 weeks prior to: 02/20/2024Up on completion, please fax results to: [phone] you. 2023 024 ALIRIO [facility], [address] [place], [address], 4 16:14:00 MRI, abdomen, w/wo contrast 2023 024 ALIRIO Christy [facility], [address] [place], [address], 4 11:46:15 Medication Orders None recorded. Patient TargetsNo targets recorded. Patient Instructions Encounter Date Encounter Id Patient Instructions Last Modified By Organization Details Last Modified Time 07/20/2023 [id number] 38-year-old male with a growing left renal mass. Discussed treatment options including observation, biopsy, nephrectomy. Counseled that given that the mass is entirely endophytic, partial nephrectomy is likely not feasible. There is also quite close to the collecting system making percutaneous cryoablation less ideal. Given the rapid rate of growth of this mass, hand-assisted laparoscopic left radical nephrectomy recommended. Patient is in agreement. Discussed risks including bleeding, infection, damage to surrounding structures. Described the perioperative course. Patient wishes to proceed. We will obtain a repeat MRI prior to surgery. Genetic testing will be recommended pending pathology. [email or web address] [id number] Not available 07/20/2023 16:54:03 08/22/2023 [id number] 38-year-old male with history of Gina grade 3, pT1a clear-cell renal cell carcinoma status post left hand-assisted radical nephrectomy 08/2023. Given patient's young age, will refer for genetic counseling Cancer support services order placed for surveillance imaging, we will obtain MRI abdomen and chest x-ray at 6 months, then annually x 5 years [email or web address] [id number] Not available 08/22/2023 14:02:16 02/20/2024 [id number] 38-year-old male with history of left kidney cancer. Left hand-assisted radical nephrectomy 08/2023. Gina grade 3, pT1a clear-cell renal cell carcinoma. We will check the CMP today Will plan to follow-up in 6 months with repeat imaging and blood work, if remains negative can have annual follow-up afterwards. [email or web address] [id number] Not available 02/20/2024 12:30:39 Reason for Referral Cancer Support Services for Clear cell carcinoma of left kidney Referring Physician: Glory Crain, Urology, Encounter Date: 08/22/2023 Genetic Counselor Referral f or Clear cell carcinoma of left kidney PLEASE CONTACT PATIENT TO SCHEDULE-Genetic counselor referral Referring Physician: Glory Crain, Urology, Encounter Date: 08/22/2023 Results Created Date Observation Date Name Description Value Unit Range Abnormal Flag Note LastModifiedBy Organization Detail LastModifiedTime 02/20/20 24 02/20/2024 COMPR EHENS JOSE METAB OLIC PANEL ALT-olympus 22.0 IU/L 10.0-4 0.0 Not Available [facility] [address], [place], [address], 02/20/2024 13:58:56 02/20/20 24 02/20/2024 COMPR EHENS JOSE METAB OLIC PANEL AST-olympus 29.7 IU/L 10.0-4 2.0 Not Available [facility] [address] [facility] [address], [place], [address], 02/20/2024 13:58:56 02/20/20 24 02/20/2024 COMPR EHENS JOSE METAB OLIC PANEL ALP-olympus 45.0 [IU]/ L 24.0-1 06.0 Stephen kraus note new refer ence range as of 2014 Not Available [facility] [address] [facility] [address], [place], [address], 02/20/2024 13:58:56 02/20/20 24 02/20/2024 COMPR EHENS JOSE METAB OLIC PANEL albumin-olym pus 4.5 g/dL 3.5-5. 0 This lab resul t is being provi ded to you and your provi dimitry at the same time in compl iance with the 21st [facility] Care Act of 2016. Your provi dimitry may not have had time to revie w and make recom menda tions based on the resul t. Stephen kruas allow up to one week for provi dimitry revie w. Not Available [facility] [address] [facility] [address], [place], [address], 02/20/2024 13:58:56 02/20/20 24 02/20/2024 COMPR EHENS JOSE METAB OLIC PANEL T bilirubin-ol ympus 0.5 mg/dL 0.2-1. 0 Not Available [facility] [address] [facility] [address], [place], [address], 02/20/2024 13:58:56 02/20/20 24 02/20/2024 COMPR EHENS JOSE METAB OLIC PANEL D bilirubin-ol ympus 0.1 mg/dL 0.0-0. 2 Not Available [facility] [address] [facility] [address], [place], [address], 02/20/2024 13:58:56 02/20/20 24 02/20/2024 COMPR EHENS JOSE METAB OLIC PANEL T protein-olym pus 7.1 g/dL 6.5-8. 1 This lab resul t is being provi ded to you and your provi dimitry at the same time in [facility] with the [facility] Act of 2015. Your provi dimitry may not have had time to revie w and make recom menda tions based on the resul t. Pleas e allow up to one week for provi dimitry revie w. Not Available [facility] [address] [facility] [address], [place], [address], 02/20/2024 13:58:56 02/20/20 24 02/20/2024 COMPR EHENS JOSE METAB OLIC PANEL potassium 4.4 mmol/ L 3.6-5. 0 Not Available [facility] [address] [facility] [address], [place], [address], 02/20/2024 13:58:56 02/20/20 24 02/20/2024 COMPR EHENS JOSE METAB OLIC PANEL Na 138.0 mmol/ L 135.0- 145.0 Leidy crandall n facto be kraus 2015. You may notic e a 1-2 mmol/ L incre ase in patie nt Na resul t. Not Available [facility] [address] [facility] [address], [place], [address], 02/20/2024 13:58:56 02/20/20 24 02/20/2024 COMPR EHENS JOSE METAB OLIC PANEL chloride 100.0 mmol/ L 101.0- 111.0 low Not Available [facility] [address] [facility] [address], [place], [address], 02/20/2024 13:58:56 02/20/20 24 02/20/2024 COMPR EHENS JOSE METAB OLIC PANEL CO2 30.0 mmol/ L 21.0-3 1.0 Not Available [facility] [address] [facility] [address], [place], [address], 02/20/2024 13:58:56 02/20/2002/20/2024 COMPR EHENS JOSE METAB OLIC PANEL aniongap 8.00 0.00-1 6.00 Not Available [facility] [address] [facility] [address], [place], [address], 02/20/2024 13:58:56 02/20/20 24 02/20/2024 COMPR EHENS JOSE METAB OLIC PANEL glu 74.80 mg/dL 70.00- 105.00 Not Available [facility] [address] [facility] [address], [place], [address], 02/20/2024 13:58:56 02/20/20 24 02/20/2024 COMPR EHENS JOSE METAB OLIC PANEL Ca 9.6 mg/dL 8.4-10 .2 Not Available [facility] [address] [facility] [address], [place], [address], 02/20/2024 13:58:56 02/20/20 24 02/20/2024 COMPR EHENS JOSE METAB OLIC PANEL BUN 9.0 mg/dL 7.0-18 .0 Not Available [facility] [address] [place] [address] [address], [place], [address], 02/20/2024 13:58:56 02/20/20 24 02/20/2024 COMPR EHENS JOSE METAB OLIC PANEL BUN/creat 7.9 ratio 9.0-20 .0 low Not Available [facility] [address] [place] [address] [address], [place], [address], 02/20/2024 13:58:56 02/20/20 24 02/20/2024 COMPR EHENS JOSE METAB OLIC PANEL creatinine 1.1 mg/dL 0.6-1. 3 Not Available [facility] [address] [facility] [address], [place], [address], 02/20/2024 13:58:56 02/20/20 24 02/20/2024 COMPR EHENS JOSE METAB OLIC PANEL eGFR >60 mL/mi n_per _1.73 90-120 If Afric an Ameri can multi ply by 1.210 This lab resul t is being provi ded to you and your provi dimitry at the same time in compl iance with the Centu ry Cures Act. Your provi dimitry may not have had time to revie w and make recom menda tions based on the resul t. Stephen kraus allow up to one week for provi dimitry revie w. Not Available [facility] [address] [facility] [address], [place], [address], 02/20/2024 13:58:56 08/04/19 24 08/03/2023 MRI, abdom en, w/wo contr ast No observ ation record ed. [facility] [address] [place], [address], 08/04/2023 13:50:19 01/29/20 24 01/29/2024 XR, chest , 2 view No observ ation record ed. [facility] [address] [facility], [place], [address], 01/30/2024 16:59:24 01/31/20 24 01/29/2024 MRI, abdom en, w/wo contr ast No observ ation record ed. [facility] [address] [facility], [place], [address], 02/07/2024 11:43:59 Result Notes None recorded. Problems Name Problem SNOMED Code Status Onset Date Resolution Date Notes Provider Name and Address Organization Details Recorded Time Renal mass 416120126 Active 2023 GLORY CRAIN MD [address] [facility],[address], [place], [address], [place] [facility] 4 14:46:22 Clear cell carcinoma of left kidney 05698188031505 02 Active 2023 GLORY CRAIN MD [address] [facility],[address], [place], [address], [facility] 12:31:23 Problem Notes None recorded. Procedures Surgical History Date Name Laterality Status Provider Name and Address Organization Details Recorded Time 02/20/20 24 Blood Draw/FOURDRINIER TENDER/PSA RESULTS completed Demetria Quinn [facility] 02/20/2024 12:26:57 08/22/19 24 COMPLEX VISIT completed GLORY CRAIN MD [address] [place] [address],[address], [place], [address], [facility] 08/22/2023 14:01:09 07/20/19 24 COMPLEX VISIT completed GLORY CRAIN MD [address] [place] [address],[address], [place], [address], [facility] 07/20/2023 16:50:31 01/17/20 22 Diagnostic colonoscopy completed Not Available Health Note 07/16/2023 14:35:57 Imaging Results None recorded. Procedure Notes None recorded. Medical Equipment None Reported. Allergies No known drug allergies Medications Name Sig Start Date Stop Date Status Note LastModified by Organization Details LastModified Time metronidazol e 500 mg tablet TAKE 1 TABLET BY MOUTH TWICE DAILY FOR 10 DAYS 07/20 completed Not Available Not Available Not Available ciprofloxaci n 500 mg tablet TAKE 1 TABLET BY MOUTH TWICE DAILY 07/20 completed Not Available Not Available Not Available cefdinir 300 mg capsule TAKE 1 CAPSULE BY MOUTH TWICE DAILY FOR 7 DAYS 07/20 completed Not Available Not Available Not Available oxycodone 5 mg tablet TAKE 1 TABLET BY MOUTH EVERY 6 HOURS NEEDED FOR PAIN active Not Available Not Available No t Available Vitals Date Recorded Body height Body mass index (BMI) Body weight Provider Name and Address Organization Details Last Updated DateTime 07/20/2023 187.96 cm 28.2 kg/m2 12639.4400 973920 g Not Available Health Note 07/20/2023 13:56:56 Date Recorded Body height Body mass index (BMI) Body weight Provider Name and Address Organization Details Last Updated DateTime 08/22/2023 187.96 cm 28.2 kg/m2 00621.32 g Ptati Haywood [facility] 08/22/2023 12:12:56 Date Recorded Body height Body mass index (BMI) Body weight Provider Name and Address Organization Details Last Updated DateTime 02/20/2024 187.96 cm 28.2 kg/m2 39723.32 g Katherine Soto [facility] 02/20/2024 12:11:14 Social History Question Answer Notes LastModified by [employer] ion Details LastModified Time Tobacco Smoking Status Current Every Day Smoker Not Available Health Note 07/16/2023 14:35:58 What Is Your Level Of Caffeine Consumption? Moderate [email or web address] Information not available 07/16/2023 How Much Tobacco Do You Chew? None [email or web address] Information not available 07/16/2023 Race Unknown Information not available 07/20/2023 Preferred Language Romansh Information not available 07/20/2023 What Was The Date Of Your Most Recent Tobacco Screening? 02/20/2024 Information not available 02/20/2024 What Is Your Relationship Status? [email or web address] Information not available 07/16/2023 Are You Sexually Active? Yes [email or web address] Information not available 07/16/2023 How Much Tobacco Do You Smoke? 0.5 PPD [email or web address] Information not available 07/16/2023 Has Tobacco Cessation Counseling Been Provided? No Information not available 02/20/2024 On What Date Was Tobacco Cessation Counseling Provided? 08/22/2023 Information not available 08/22/2023 How Many Years Have You Smoked Tobacco? 18 [email or web address] Information not available 07/16/2023 How Many Days In The Past Year Have You Consumed 5 Or More Drinks? 50 [email or web address] Information no t available 07/16/2023 Sex: Unknown Functional Status Question Answer Note LastModified by [employer] ion Details LastModified Time Do you use any illicit or recreational drugs? Yes [email or web address] Information not available 07/16/2023 What is your level of alcohol consumption? Moderate [email or web address] Information not available 07/16/2023 Do you or have you ever used smokeless tobacco? Never used smokeless tobacco [email or web address] Information not available 07/16/2023 Do you or have you ever used e-cigarettes or vape? Never used electronic cigarettes [email or web address] Information not available 07/16/2023 Mental Status None recorded. Family History Relationship Description Onset Age of this Age Resolved Age Notes LastModified by Organization Details LastModified Time Unspecified Relation Family history unknown [email or web address] Not available 2023 14:35:56 Medical History Condition Response Sexually Transmitted Infection N Diabetes N Other N Bleeding Disorder N High Blood Pressure N Kidney Stones N High Cholesterol N GERD/Acid Reflux N Heart Disease N Cancer N Lung Disease N Depression N Immunizations Vaccine Type Date Status Note Provider Nam e and Address Organization Details Recorded Time MMR 9 completed Patti Goodpaster null, [facility] 07/20/2023 14:13:43 MMR 0 completed Patti Goodpaster null, [facility] 07/20/2023 14:13:43 Tdap 6 completed Patti Goodpaster null, [facility] 07/20/2023 14:13:43 polio, unspecified formulation 9 completed Patti Goodpaster null, [facility] 07/20/2023 14:13:43 Td (adult), 2 Lf tetanus toxoid, preservative free, adsorbed 7 completed Patti Goodpaster null, [facility] 07/20/2023 14:13:43 Td (adult), 2 Lf tetanus toxoid, preservative free, adsorbed 0 completed Patti Goodpaster null, [facility] 07/20/2023 14:13:43 Hep B, adolescent or pediatric 6 completed Patti Goodpaster null, [facility] 07/20/2023 14:13:43 Hep B, adolescent or pediatric 6 completed Patti Goodpaster null, [facility] 07/20/2023 14:13:43 Hep B, adult 6 completed Patti Goodpaster null, [facility] 07/20/2023 14:13:43 meningococcal MCV4P 6 completed Patti Goodpaster null, [facility] 07/20/2023 14:13:43 DTaP 8 completed Patti Goodpaster null, [place] [facility] 07/20/2023 14:13:43 DTaP 9 completed SHAHEED Engle [facility] 07/20/2023 14:13:43 Past Encounters Encounter ID Performer Location Encounter Start Date Encounter Closed Date Diagnosis/Indication Diagnosis SNOMED-CT Code Diagnosis ICD10 Code Diagnosis Note [id number] MD Duran [facility] [address] 07/20/2023 13:52:53 07/20/2023 17:13:05 Renal mass 529025623 N28.89 [id number] MD Duran [facility] [address] 08/22/2023 12:01:23 08/22/2023 14:16:29 Clear cell carcinoma of left kidney [id number] 759172 C64.2 [id number] MD Duran [facility] [address] [address] 02/20/2024 12:09:57 02/21/2024 10:19:09 History of malignant neoplasm of kidney 436426215 Z85.528 Health Concerns Section Related Observation LastModified by Organization Detai ls LastModified Time None Recorded Concern Status LastModified by Organization Details LastModified Time None Recorded Advance Directives Directive None Recorded Payers Insurance Date Sequence Insurance Name Policy Number Policy Plascencia Covered Member ID Plascencia Member ID Guarantor Name 02/17/2024 1 [employer] [id number] Chadd Romeo [id number] Chadd Romeo Notes Date Note Type Note Provider Name and Address Organization Details Recorded Time 07/20/2023 text/html Chief complaint:reason listed [id number] male presents for evaluation of a left renal mass. He brings in today's ED with an MRI and a CT from [facility] from several months ago. Patient has had multiple scans over the last several years due to his diverticulitis. The software and the CD does not allow for clear measurement, however there does appear to be a mass consistent with RCC in the lower pole of the left kidney, approximately 2 to 3 cm in size. It is entirely endophytic. Mass was reported to be as small as 1.2 cm a year ago, however this imaging is not available to me. Patient denies any known urologic malignancy in the family. No prior urologic surgeries. Prior appendectomy many years ago. Other Urological Concern:Other Urological Concern:Have a mass on my kidney that keeps growing.Began:24 Months agoFrequency:DailyA ssociated symptoms:?Worse with:Not sureBetter with:I would assume surgery..Severity:m ild Progression: getting worse overall GLORY CRAIN MD [address] [place] [address],[address], [address], [facility] 07/20/2023 16:54:08 08/22/2023 text/html 38-year-old male presents for follow-up status post left hand-assisted laparoscopic radical nephrectomy. Patient is recovered from surgery well. Pathology revealed Gina grade 3 clear-cell renal cell carcinoma, 2.2 cm, stage pT1a GLORY CRAIN MD [address] [place] [address],[address], [address], [facility] 08/22/2023 14:02:34 02/20/2024 text/html 38-year-old male with history of left kidney cancer. Left hand-assisted radical nephrectomy 08/2023. Gina grade 3, pT1a clear-cell renal cell carcinoma. Given patient's very young age, he was referred for genetic evaluation which was negative. Surveillance chest x-ray and abdominal MRI 01/2024 negative for recurrence. It does not seem that his CMP was drawn as scheduled. No acute urologic concerns today. GLORY CRAIN MD [address] [place] [address],[address], [place], [address], [facility] 02/20/2024 12:30:51
[2024-12-16 17:02] VITALS: BP 128/88; PULSE 105; RESP 16; TEMP 37.3; O2SAT 96; BMI 29.9
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
[2024-12-16] MEDS: KETOROLAC 30 MG/ML inj 15 MG IVP (17:31)
--- OUTSIDE RECORDS SUMMARY | 2024-12-16 17:34 | XMS_ITS | CCD ---
Author Name Interface, B2Mqzzlrl lity Address [address] [place] [id number] [facility] Address [address] [place] [address] Care Team Providers Care Practice Billing Associate Name Role Phone Elizabeth Garcia Unavailable Unavailable Reason for Visit Encounters Problems Social History
--- OUTSIDE RECORDS SUMMARY | 2024-12-16 17:35 | XMS_ITS | CCD ---
Author Name Interface, S2Psenxde lity Address [address] [place] [id number] [facility] Address [address] [place] [address] Care Team Providers Care Sleeve Machine Tender Name Role Phone Elizabeth Garcia Unavailable Unavailable Reason for Visit Encounters Problems Social History
== END 2024-12-16 17:55 | disposition home or self-care (01) ==
LOC: ED 17:31
PROVIDERS: Emergency Provider Emergency Medicine Emergency Medical Services; PCP Family Medicine
DX: K57.32 Diverticulitis of large intestine without perforation or abscess without bleeding (principal)
CPT/HCPCS: 96374; 99283; 99284; J1885

== ENCOUNTER 2025-03-27 16:54 | Emergency (ER) | payer OTHER, SELFPAY ==
--- OUTSIDE RECORDS SUMMARY | 2025-03-27 16:56 | XMS_ITS | Clinical Summary ---
Author Organization [facility] Address [address] [place] [address] Care Team Providers Care Sql Database Programmer Name Role Phone Pcp, No Primary Care Provider Unavailabl e Allergies No known active allergies Medications medication order composer Take 0.8 g by mouth two times daily. Psyllium husk (Metamucil) Active oxyCODONE (ROXICODONE) 5 mg immediate release tabletIndicatio ns:Renal mass Take 1 Tablet (5 mg) by mouth every 4 hours if needed for Pain. 8 Tablet 08/11/2023 12:25 PM DEHORNER 08/11/2023 Active docusate (COLACE) 100 mg capsuleIndicati ons:Renal mass Take 1 Capsule (100 mg) by mouth once daily. 14 Capsule 08/11/2023 12:25 PM DEHORNER 08/11/2023 Active polyethylene glycoL (MIRALAX) 17 gram/scoop [...] Used Date Smoking Tobacco: Former Cigarettes 0.5 20.7 S tarted: 07/10/2004 Smokeless Tobacco: Never Tobacco [...] on file Legal Sex Male 8:37 AM DEHORNER Gender Identity Not on file Sexual Orientation Not on file Obstetrics History Last Filed Vital Signs Vital Sign Reading Time Taken Comments Blood Pressure 127/86 08/15/2023 8:14 AM DEHORNER Pulse 82 08/15/2023 8:14 AM DEHORNER Temperature 36.9 C (98.5 F) 08/11/2023 12:07 PM DEHORNER Respiratory Rate 18 08/11/2023 12:0 7 PM DEHORNER Oxygen Saturation 95% 08/15/2023 8:14 AM DEHORNER Inhaled Oxygen Concentration - - Weight 100.1 kg (220 lb 9.6 oz) 08/15/2023 8:14 AM DEHORNER Height 188 cm (6' 2) 08/10/2023 7:14 AM DEHORNER Body Mass Index 28.32 08/10/2023 7:14 AM DEHORNER Plan of Treatment Health Maintenance Due Date Last Done Comments HIV for age 15-65 2002 BMI (ht and wt on same day) for age 18+ 2005 Hepatitis C screening for ag e 18-79 2005 HPV series for age 9-45 (1 - 3-dose SCDM series) 2014 Lipids for age 35-44 2022 Depression screening for age 12+ 08/15/2024 08/15/2023 COVID-19 vaccine series ( - 2023- season) 2025 Influenza Vaccine (#1) 2025 Tetanus booster 05/11/2026 05/11/2016, 07/10/2006, 10/18/1999 RSV vaccine for adults or (1 - 1-dose 75+ series) 2062 Hepatitis B series for 19+ Completed 03/24, 10/26/2005, 09/12/2005 Pneumococcal series for age 6-49 Aged Out No longer eligible b ased on patient's age to complete this topic Insurance [place] [place] [id number] Advance Directives * Full Code (Latest Code Status on File) Date Activated Date Inactivated Comments 08/10/2023 7:02 AM 08/11/2023 3:41 PM Question Answer Comments Code Status Discussion: Unable to Assess Preferences, Provider to review later Care Teams Sql Database Programmer Relationship Specialty Start Date End Date Pcp, No . PCP - General 07/16/24
--- OUTSIDE RECORDS SUMMARY | 2025-03-27 16:56 | XMS_ITS | Clinical Summary ---
Author Organization [facility] Address [address] [facility] [place] [address] Care Team Providers Care Corrections Corporal Name Role Phone No Ref-Primary, Physician Primary Care Provider Allergies No known active allergies Medications No known medications Social History Tobacco Use Types Packs/Day Years Used Date Smoking Tobacco: Never Assessed Adolescent Education Answer Date Record ed Getting School Help Needed Not on file 04/26 Sex and Gender Information Value Date Recorded Sex Assigned at Not on file Legal Sex Male 4:58 AM DIRECTOR DATABASE Gender Identity Not on file Sexual Orientation Not on file Last Filed Vital Signs Vital Sign Reading Time Taken Comments Blood Pressure 132/79 09/14/2020 4:45 PM DIRECTOR DATABASE Pulse 79 09/14/2020 4:45 PM DIRECTOR DATABASE Temperature 36 C (96.8 F) 09/14/2020 3:45 PM DIRECTOR DATABASE Respiratory Rate 16 09/14/2020 4:45 PM DIRECTOR DATABASE Oxygen Saturation 97% 09/14/2020 4:45 PM DIRECTOR DATABASE Inhaled Oxygen Concentration - - Weight 102.1 kg (225 lb) 09/14/2020 3:45 PM DIRECTOR DATABASE Height 188 cm (6' 2) 09/14/2020 3:45 PM DIRECTOR DATABASE Body Mass Index 28.89 09/14/2020 3:45 PM DIRECTOR DATABASE Plan of Treatment Not on file Care Teams Corrections Corporal Relationship Specialty Start Date End Date No Ref-Primary, Physician PCP - General 09/14/20
[2025-03-27 17:14] VITALS: BP 124/87; PULSE 91; RESP 16; TEMP 37.3; O2SAT 96; BMI 29.6
--- NOTE | 2025-03-27 19:46 | CT_ITS ---
Patient: GRIS BURTON Facility:?[facility] Patient ID:?[id number] Site Patient ID:?[id number]. Site :?[id number] Study:?CT-Neck Angio Angio W/ 95CC ISOVUE 370-03/27/2025 9:07:35 PM Ordering Physician:Walt Dawkins Final Report: DATE: 03/27/2025 CLINICAL HISTORY: Patient with focal neurological deficits. TECHNIQUE: Standard helical CT image acquisition through the head and neck was performed after intravenous contrast bolus enhancement. 2D and 3D MIP images for post- processing were performed and interpreted on an independent workstation and 3D images were permanently archived. COMPARISON: CT same day. FINDINGS: The origins of the great vessels from the aortic arch are patent. The origin of the right vertebral artery is patent. The origin of the left vertebral artery is patent. The common carotid arteries are patent There is no stenosis at the origin of the right internal carotid artery. There is no stenosis at the origin of the left internal carotid artery. The rest of the cervical segments of the internal carotid arteries are patent up to their intracranial segments. The intracranial segments of the internal carotid arteries are patent. The vertebral arteries are codominant. The cervical segments of the vertebral arteries are patent. The intracranial segments of the vertebral arteries are patent. The middle cerebral arteries are normal without aneurysm or proximal occlusion identified. The anterior cerebral arteries are normal without aneurysm or proximal occlusion identified. The anterior communicating artery is well visualized and appears normal. The basilar artery is normal without aneurysm or occlusion. The posterior cerebral arteries are normal without aneurysm or proximal occlusion. There is normal opacification of major intracranial venous structures. The visualized lung apices are unremarkable The thyroid gland is unremarkable. The soft tissues of the neck are unremarkable. There are degenerative changes in the cervical spine. IMPRESSION: Normal CT angiogram of the head and neck. Please note that all CT scans at this facility use dose modulation, iterative reconstruction, and/or weight-based dosing when appropriate to reduce radiation dose to as low as reasonably achievable. Dictated by Mando Simth MD @ 03/27/2025 11:12:08 PM (Electronic Signature)
--- NOTE | 2025-03-27 19:46 | CT_ITS ---
Patient: GRIS BURTON Facility:?[facility] Patient ID:?[id number] Site Patient ID:?[id number]. Site :?1985 Study:?CT-Head Angio W/ 95CC ISOVUE 370-03/27/2025 9:07:06 PM Ordering Physician:Walt Dawkins Final Report: DATE: 03/27/2025 CLINICAL HISTORY: Patient with focal neurological deficits. TECHNIQUE: Standard helical CT image acquisition through the head and neck was performed after intravenous contrast bolus enhancement. 2D and 3D MIP images for post- processing were performed and interpreted on an independent workstation and 3D images were permanently archived. COMPARISON: CT same day. FINDINGS: The origins of the great vessels from the aortic arch are patent. The origin of the right vertebral artery is patent. The origin of the left vertebral artery is patent. The common carotid arteries are patent There is no stenosis at the origin of the right internal carotid artery. There is no stenosis at the origin of the left internal carotid artery. The rest of the cervical segments of the internal carotid arteries are patent up to their intracranial segments. The intracranial segments of the internal carotid arteries are patent. The vertebral arteries are codominant. The cervical segments of the vertebral arteries are patent. The intracranial segments of the vertebral arteries are patent. The middle cerebral arteries are normal without aneurysm or proximal occlusion identified. The anterior cerebral arteries are normal without aneurysm or proximal occlusion identified. The anterior communicating artery is well visualized and appears normal. The basilar artery is normal without aneurysm or occlusion. The posterior cerebral arteries are normal without aneurysm or proximal occlusion. There is normal opacification of major intracranial venous structures. The visualized lung apices are unremarkable The thyroid gland is unremarkable. The soft tissues of the neck are unremarkable. There are degenerative changes in the cervical spine. IMPRESSION: Normal CT angiogram of the head and neck. Please note that all CT scans at this facility use dose modulation, iterative reconstruction, and/or weight-based dosing when appropriate to reduce radiation dose to as low as reasonably achievable. Dictated by Mando Smith MD @ 03/27/2025 11:11:31 PM (Electronic Signature)
--- NOTE | 2025-03-27 19:46 | CRLHL7_ITS ---
For Patients: As a result of the Century Cures Act, medical imaging exams and procedure reports are released immediately into your electronic medical record. You may view this report before your referring provider. If you have questions, please contact your health care provider. INDICATION: Right arm numbness. COMPARISON: None. TECHNIQUE: CT of the head without IV contrast. Coronal and sagittal reconstructions. FINDINGS: Brain: No intracranial hemorrhage, abnormal extra-axial fluid collection, or evidence of acute infarct. No mass effect or midline shift. Normal caliber ventricular system. Skull base and calvarium: Small polyp or mucous retention cyst in the right maxillary sinus. The visualized paranasal sinuses and mastoid air cells are otherwise clear. The visualized orbits are grossly unremarkable. No acute fracture identified. Soft tissues: Unremarkable. IMPRESSION: No acute intracranial findings. Please note that all CT scans at this facility use dose modulation, iterative reconstruction, and/or weight-based dosing when appropriate to reduce radiation dose to as low as reasonably achievable. Dictated by Cristel Patricia MD @ 03/27/2025 9:20:04 PM (Electronically Signed)
[2025-03-27 20:17] LABS: Chloride* 99 mmol/L (96-114); Sodium* 137 mmol/L (135-149)
[2025-03-27 20:18] LABS: Potassium* 4.1 mmol/L (3.6-5.1)
[2025-03-27 20:21] LABS: Anion Gap 9 mEq/L (7-15); Blood Urea Nitrogen* 10 mg/dL (5-24); Calcium* 9.0 mg/dL (8.4-10.6); Carbon Dioxide* 29 mmol/L (20-32); Creatinine* 1.2 mg/dL (0.5-1.5); Est. Creatinine Clearance* 97.99; Estimated Glomerular Filt Rate 80 ml/min; Glucose* 88 mg/dL (60-115)
[2025-03-27 20:23] LABS: D Dimer Quantitative* 0.56 ug/ml (0.00-0.50)
[2025-03-27 20:29] LABS: Creatinine, Point-of-Care* 1.4 mg/dl (0.6-1.3)
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
[2025-03-27 21:28] VITALS: PULSE 90; O2SAT 98
--- NOTE | 2025-03-27 21:35 | CRLHL7_ITS ---
For Patients: As a result of the Century Cures Act, medical imaging exams and procedure reports are released immediately into your electronic medical record. You may view this report before your referring provider. If you have questions, please contact your health care provider. INDICATION: Arm Swelling, numbness TECHNIQUE: Ultrasound venous duplex right upper extremity. Real-time ceballos-scale (B mode 2D), color Doppler, and spectral Doppler imaging were performed with compression and augmentation. COMPARISON: None FINDINGS: Deep vein: The visualized right internal jugular, subclavian, brachial, and axillary veins are fully compressible, demonstrate normal color flow, and normal response to mechanical augmentation. The Duplex Doppler waveforms are normal in appearance. Superficial vein: The visualized cephalic and basilic veins are unremarkable. Soft tissue: No masses or cysts are identified. No adenopathy is seen. IMPRESSION: 1. No sonographic evidence of acute deep venous thrombosis seen. Dictated by: George Ventura MD @ 03/27/2025 23:13:24 (Electronically Signed)
[2025-03-27 22:53] VITALS: BP 141/98; PULSE 84; RESP 18; TEMP 36.3; O2SAT 97
[2025-03-28 10:55] LABS: Creatinine Point of Care* 1.4 mg/dl (0.6-1.3)
== END 2025-03-27 22:54 | disposition home or self-care (01) ==
PROVIDERS: Emergency Provider Emergency Medicine; PCP Family Medicine
DX: R20.0 Anesthesia of skin (principal)
CPT/HCPCS: 36415; 70450; 70496; 70498; 80048; 82565; 85379; 93971; 99284; 99285; Q9967